=== PATIENT | female | born 1985 | race Caucasian/White ===

== ENCOUNTER 2020-08-25 14:36 | Outpatient (REF) | payer BC, SELFPAY ==
[2020-08-26 09:26] LABS: CT PCR NOT DETECTED (Not Detect.); NG PCR NOT DETECTED (Not Detect.)
== END 2020-08-25 14:37 | disposition home or self-care (01) ==
LOC: HO.LNP 14:36
PROVIDERS: Visit Provider Obstetrics & Gynecology
DX: Z01.419 Encounter for gynecological examination (general) (routine) without abnormal findings (principal); Z11.3 Encounter for screening for infections with a predominantly sexual mode of transmission; R10.2 Pelvic and perineal pain; R31.29 Other microscopic hematuria
CPT/HCPCS: 81002; 81025; 87086; 87147; 87491; 87591

== ENCOUNTER 2020-08-26 09:01 | Outpatient (REF) | payer BC, SELFPAY ==
[2020-08-30 02:31] LABS: HPV 16 RNA NOT DETECTED (NOT DETECTED); HPV mRNA E6/E7 Detected (Not Detected)
== END 2020-08-26 09:02 | disposition home or self-care (01) ==
LOC: HO.LAB 09:01
PROVIDERS: Visit Provider Obstetrics & Gynecology
DX: Z01.419 Encounter for gynecological examination (general) (routine) without abnormal findings (principal); Z11.51 Encounter for screening for human papillomavirus (HPV)
CPT/HCPCS: 87624; 87625; 88141; 88142

== ENCOUNTER 2020-09-04 10:53 | Outpatient (REF) | payer BC, SELFPAY ==
--- NOTE | 2020-09-04 10:59 | US_ITS ---
EXAMINATION: US PELVIS COMPLETE CLINICAL INFORMATION: Pelvic and perineal pain. Right lower quadrant pain. COMPARISON: None. TECHNIQUE: Transabdominal and transvaginal ultrasound the pelvis is performed. FINDINGS: On transabdominal ultrasound, the uterus is retroverted and retroflexed measuring 8.1 cm in length, 3.7 cm in AP and 4.3 cm in transverse dimension. The uterus is unremarkable. The right ovary measures 3.4 x 1.3 x 1.3 cm and volume 2.8 mL. The left ovary measures 2.5 x 1.2 x 1.4 cm and volume 2.9 mL. There is small amount of free fluid in the cul-de-sac. US/US transvaginal IMPRESSION: Unremarkable uterus and ovaries. Small amount of free fluid in the cul-de-sac.
--- NOTE | 2020-09-04 10:59 | US_ITS ---
EXAMINATION: US PELVIS COMPLETE CLINICAL INFORMATION: Pelvic and perineal pain. Right lower quadrant pain. COMPARISON: None. TECHNIQUE: Transabdominal and transvaginal ultrasound the pelvis is performed. FINDINGS: On transabdominal ultrasound, the uterus is retroverted and retroflexed measuring 8.1 cm in length, 3.7 cm in AP and 4.3 cm in transverse dimension. The uterus is unremarkable. The right ovary measures 3.4 x 1.3 x 1.3 cm and volume 2.8 mL. The left ovary measures 2.5 x 1.2 x 1.4 cm and volume 2.9 mL. There is small amount of free fluid in the cul-de-sac. US/US pelvic complete IMPRESSION: Unremarkable uterus and ovaries. Small amount of free fluid in the cul-de-sac.
== END 2020-09-04 10:54 | disposition home or self-care (01) ==
LOC: HO.US 10:53
PROVIDERS: Visit Provider Obstetrics & Gynecology
DX: R10.2 Pelvic and perineal pain (principal)
CPT/HCPCS: 76830; 76856

== ENCOUNTER → 2020-09-08 10:21 | Outpatient (BNVA) | payer BC, SELFPAY | PROVIDERS: Visit Provider Obstetrics & Gynecology | DX: Z76.89 Persons encountering health services in other specified circumstances (principal) ==

== ENCOUNTER 2020-10-20 10:34 | Outpatient (REF) | payer BC, SELFPAY | END 2020-10-20 10:35 | disposition home or self-care (01) | LOC: HO.LAB 10:34 | PROVIDERS: Visit Provider Obstetrics & Gynecology | DX: R31.29 Other microscopic hematuria (principal); R10.2 Pelvic and perineal pain; N39.0 Urinary tract infection, site not specified | CPT/HCPCS: 57454; 81025; 88305 ==

== ENCOUNTER → 2020-10-23 09:48 | Outpatient (BNVA) | payer BC, SELFPAY | PROVIDERS: Visit Provider Obstetrics & Gynecology | DX: Z76.89 Persons encountering health services in other specified circumstances (principal) ==

== ENCOUNTER → 2020-11-12 13:39 | Outpatient (BNVA) | payer BC, SELFPAY | PROVIDERS: Visit Provider Obstetrics & Gynecology | DX: Z76.89 Persons encountering health services in other specified circumstances (principal) ==

== ENCOUNTER 2020-11-14 10:43 | Outpatient (REF) | payer BC, SELFPAY ==
[2020-11-14 10:43] VITALS: BP 159/81; PULSE 92; RESP 18; TEMP 36.3; O2SAT 98; BMI 45.3
--- NOTE | 2020-11-14 10:54 | MHC.SHP ---
Pre-Procedural Eval Section A The patient is an INPATIENT: No Changes since office visit: No Cold of Flu in the past 2 weeks, No New Medical Problems, No Changes in Medication and No Patient answered all questions The History & Physical has been completed within 30 days and I have reviewed it.: Yes Section B Chief Complaint: cin3 Allergies: Allergies Allergy/AdvReac Type Severity Reaction Status Date / Time Sulfa (Sulfonamide Allergy Unknown SWELLING Verified 11/12/20 13:51 Antibiotics) [SULFA(SULFONAMIDE ANTIBIOTICS)] Plan Diagnosis/Plan: Unchanged I have reviewed the history and physical and performed a pertinent physical examination on my patient. No changes have occurred unless specified.
--- NOTE | 2020-11-14 11:09 | PM.OP ---
Brief Operative Note Date of Service: 10/17/20 Pre-op diagnosis: EAMON 3 Post-op diagnosis: same Procedure: LEEP CONE with post CONE ECC Surgeon: Lalo Alva MD Anesthesia: local and other (Paracervical block) Estimated blood loss (mL): 0 Pathology: other (Ant+post Cerv lip, Endocx, Post cone ECC) Condition: stable Disposition: other (Home)
--- NOTE | 2020-11-14 11:09 | W.PM.OPN ---
Operative Note Operative Note Date of Service: 10/17/20 Narrative: Preop diagnosis: EAMON 3 @ 12 o'clock with EAMON I a@ 4+6 o'clock Operation: LEEP Cone with post cone ECC Post op diagnosis: same Anesthesia: paracervical block Complications: none Pathology: Anterior and Posterior cervical lip with endocervix & post cone RCC QBL: minimal Procedure: The patient was put in the dorsal lithotomy position, was prepped and draped in the usual sterile fashion. A sterile speculum was inserted inside the patient vagina. Using Lugol solution the cervix with Dyed with Lugol solution to identifiy the abnormal demarcating line. 10 cc of Marcaine0.5% with epinephrine were given at 2,4 , 8, and 10 o'clock. Using a medium-size loop wire, the anterior cervical lip was excised followed by the posterior cervical lip and endocervix, post cone ECC was done afterwards. Hemostasis was assured using cautery and Monsel solution. All instruments were taken out of the patient's vaginal cavity. the patient tolerated the procedure well and was discharged home with the following instructions: call if temperature is above 100.4, vaginal bleeding, abdominal pain or nausea or vomiting. Follow-up in the office in 2 weeks for postop visit
== END 2020-11-14 10:44 | disposition home or self-care (01) ==
LOC: HO.MS 10:43
PROVIDERS: Visit Provider Obstetrics & Gynecology
PROC: 0UBC7ZZ Excision of Cervix, Via Natural or Artificial Opening (ICD-10-PCS; CPT 57522; principal; 2020-11-14 11:00)
DX: N87.0 Mild cervical dysplasia (principal); E28.2 Polycystic ovarian syndrome; Z88.2 Allergy status to sulfonamides
CPT/HCPCS: 57522; 81025; 88305; 88307; 88341; 88342; 88360

== ENCOUNTER → 2020-11-26 12:52 | Outpatient (BNVA) | payer BC, SELFPAY | PROVIDERS: Visit Provider Obstetrics & Gynecology ==

== ENCOUNTER → 2021-07-10 12:18 | Outpatient (BNVA) | payer BC, SELFPAY | PROVIDERS: PCP Physician Assistant; Visit Provider Physician Assistant ==

== ENCOUNTER → 2021-08-12 08:08 | Outpatient (BNVA) | payer BC, SELFPAY | PROVIDERS: PCP Physician Assistant; Visit Provider Dietitian, Registered | DX: E66.01 Morbid (severe) obesity due to excess calories (principal); E28.2 Polycystic ovarian syndrome; Z68.42 Body mass index [BMI] 45.0-49.9, adult | CPT/HCPCS: 97802 ==

== ENCOUNTER 2021-08-22 09:05 | Outpatient (REF) | payer BC, SELFPAY ==
[2021-08-22 09:19] LABS: MANUAL DIFF FLAG NO
[2021-08-22 09:46] LABS: Basophils Percent Auto 0.4 % (0-2); Eosinophils Absolute Auto 0.1 X10*3/uL (0.0-0.4); Eosinophils Percent Auto 1.4 % (0-4); Hemoglobin 14.7 g/dl (12.0-16.0); Imm Gran Abs Auto 0.02 X10*3/uL (0.00-0.03); Imm Gran Pct Auto 0.2 % (0.0-0.4); Lymphocytes Absolute Auto 1.9 X10*3/uL (1.2-4.9); Lymphocytes Percent Auto 22.8 % (20-40); Mean Corpuscular HGB Conc 33.4 g/dl (31.0-35.0); Mean Corpuscular Hemoglobin 29.7 pg (27.0-33.0); Mean Corpuscular Volume 88.9 fL (80-98); Mean Platelet Volume 10.6 fL (9.4-12.3); Monocytes Absolute Auto 0.5 X10*3/uL (0.1-1.2); Monocytes Percent Auto 6.2 % (2-11); Neutrophils Absolute Auto 5.8 X10*3/uL (2.0-8.3); Platelet Count 226 X10*3/uL (160-400); Red Blood Count 4.95 X10*6/uL (4.20-5.50); Red Cell Distribution Width 12.6 % (11.0-16.0); White Blood Count 8.4 X10*3/uL (4.8-10.8)
[2021-08-22 10:03] LABS: Alanine Aminotransferase 53 U/L (0-31); Albumin Level 4.1 g/dL (3.5-5.0); Alkaline Phosphatase 92 U/L (39-117); Anion Gap 11 (12-20); Aspartate Amino Transferase 25 U/L (5-31); Bilirubin Total 0.5 mg/dL (0.0-1.0); Blood Urea Nitrogen 10 mg/dL (9-16); C Reactive Protein 1.27 mg/dL (< or = 0.50); Calcium 9.4 mg/dL (8.4-10.2); Carbon Dioxide 29 mmol/L (22-29); Chloride 105 mmol/L (96-108); Cholesterol 195 mg/dL; Estimated Glomerular Filt Rate > 60; Glucose Random 102 mg/dL (60-115); HDL Cholesterol 35 mg/dL; Iron 41 mcg/dL (30-160); LDL Cholesterol Calculated 139 mg/dl; Percent Iron Saturation 9 % (15-50); Potassium 4.6 mmol/L (3.3-5.1); Sodium 140 mmol/L (135-145); Total Iron Binding Capacity 447 mcg/dL (228-428); Total Protein 6.8 g/dL (6.5-8.0); Triglycerides 105 mg/dL; Unsaturated Iron Binding 406 ug/dL
[2021-08-22 10:09] LABS: Estimated Average Glucose 91 mg/dL; Hemoglobin A1c % 4.8 %
[2021-08-22 10:24] LABS: Ferritin 32 ng/mL (10-122); TSH reflex Free T4 0.53 uIU/mL (0.32-4.0); Vitamin D 25-OH Total 45.9 ng/mL (>30)
[2021-08-24 04:27] LABS: Vitamin B12 631 pg/mL (200-900)
[2021-08-24 13:41] LABS: Calcium (PTHI) 9.4 mg/dL (8.6-10.2); PTHI 37 pg/mL (14-64)
[2021-08-26 02:07] LABS: Zinc 72 mcg/dL (60-130)
[2021-08-27 00:32] LABS: Vitamin A 52 mcg/dL (38-98)
[2021-08-28 11:21] LABS: Vitamin B1 10 nmol/L (8-30)
== END 2021-08-22 09:06 | disposition home or self-care (01) ==
LOC: HO.LAB 09:05
PROVIDERS: PCP Physician Assistant; Visit Provider Physician Assistant
DX: E28.2 Polycystic ovarian syndrome (principal); E66.01 Morbid (severe) obesity due to excess calories; F41.9 Anxiety disorder, unspecified
CPT/HCPCS: 36415; 80053; 80061; 82306; 82607; 82728; 82746; 83036; 83540; 83970; 84425; 84443; 84590; 84630; 85025; 86140

== ENCOUNTER → 2021-09-09 08:17 | Outpatient (BNVA) | payer BC, SELFPAY | PROVIDERS: PCP Physician Assistant; Referring Provider Surgery; Visit Provider Dietitian, Registered | DX: E66.9 Obesity, unspecified (principal) | CPT/HCPCS: 97803 ==

== ENCOUNTER → 2021-09-11 08:03 | Outpatient (BNVA) | payer BC, SELFPAY | PROVIDERS: PCP Physician Assistant; Visit Provider Surgery ==

== ENCOUNTER 2021-09-14 08:00 | Outpatient (REF) | payer BC, SELFPAY ==
--- NOTE | ~2021-09-14 | XR_ITS ---
EXAMINATION: XR CHEST CLINICAL INFORMATION: Shortness of breath. Anxiety. COMPARISON: None TECHNIQUE: 2 views of the chest were obtained. FINDINGS: Cardiac silhouette is normal in size. The lungs are well aerated. There is no lobar consolidation. No pleural effusion or pneumothorax. No acute osseous abnormality. XR/XR chest 2V IMPRESSION: No acute pulmonary pathology.
--- NOTE | ~2021-09-14 | US_ITS ---
EXAMINATION: US COMPLETE ABDOMEN WITH LIVER ELASTOGRAPHY CLINICAL INFORMATION: Elevated liver function tests COMPARISON: None. TECHNIQUE: Real-time imaging of the abdominal viscera. Noninvasive ultrasound liver fibrosis assessment is performed using Mark ElastPQ point quantification shear wave elastography (pSWE) with a C5-2 MHz transducer. Multiple elastography samples are obtained. FINDINGS: PANCREAS: Not well visualized due to bowel gas ABDOMINAL AORTA: The proximal, middle, and distal aortic segments are normal in caliber. INFERIOR VENA CAVA: Visualized portions are normal. LIVER: There is a 1.4 x 0.7 x 1.3 cm hyperechoic lesion in the peripheral right lobe of the liver. The liver demonstrates normal size, contour and echogenicity. No intrahepatic biliary duct dilatation. The right lobe measures 15 cm in length. The left lobe measures 7 cm in length. Portal flow is normal/hepatopedal Shear wave liver elastography median stiffness is 1.4 m/s (reference: normal median stiffness is 1.3 m/s or less). IQR/median stiffness to assess sampling precision is 0.24 (reference: good quality data set is IQR/median stiffness of 0.15 or less). GALLBLADDER: The gallbladder is normal in size. There is a gallstone in the gallbladder. The gallbladder wall is normal in thickness. COMMON BILE DUCT: Normal in caliber measuring 0.2 cm in diameter. RIGHT KIDNEY: Normal. No hydronephrosis. No renal calculi or focal parenchymal lesions. The kidney measures 11.5 cm in maximum dimension. LEFT KIDNEY: Normal. No hydronephrosis. No renal calculi or focal parenchymal lesions. The kidney measures 10.4 cm in maximum dimension. SPLEEN: Normal. The spleen measures 11.4 cm in maximum dimension. FREE FLUID: None. US/US abdomen comp w elastography IMPRESSION: 1. Impression: 1.4 x 0.9 x 1.3 cm peripheral hyperechoic lesion in the right lobe the liver. This may represent a hemangioma. Ultrasound follow-up could be considered. Alternatively, if patient is high risk i.e. known liver disease or history of malignancy, this could be further evaluated with liver MRI with contrast. Gallstone. Limited visualization of the pancreas. 2. Liver elastography: Limited due to sampling error. In the absence of other known clinical signs, rules out compensated advanced chronic liver disease. REFERENCE: Society of Radiologists in Ultrasound Liver Stiffness Thresholds (2020): LIVER STIFFNESS THRESHOLDS: *Liver Stiffness equal or less than 1.3 m/s: High probability of being normal. *Liver Stiffness less than 1.7 m/s: In the absence of other known clinical signs, rules out compensated advanced chronic liver disease. *Liver Stiffness 1.7-2.1 m/s: Suggestive of compensated advanced chronic liver disease but need further test for confirmation. *Liver Stiffness over 2.1 m/s: Rules in compensated advanced chronic liver disease. *Liver Stiffness over 2.4 m/s: Suggestive of clinically significant portal hypertension. QUALITY OF DATA SET: *IQR/Median value equal or less than 0.15 implies a quality data set. *IQR/Median value over 0.15 implies a poor quality data set. SIGNIFICANT CHANGE FROM PRIOR EXAM: Significant change if liver stiffness measurement is 10% or greater from prior exam. OTHER CONSIDERATIONS: The stage of liver fibrosis may be overestimated in the setting of acute hepatitis, liver inflammation, elevated liver function tests, hepatic vascular congestion, obstructive cholestasis, non-fasting state, and infiltrative diseases such as amyloidosis and lymphoma. In some patients with NAFLD, the liver stiffness thresholds for compensated advanced chronic liver disease may be lower. In causes other than viral hepatitis and NAFLD, liver stiffness thresholds are not well established.
[2021-09-17 15:24] LABS: H Pylori Breath Test Negative (Negative)
== END 2021-09-14 08:01 | disposition home or self-care (01) ==
LOC: HO.US 08:00
PROVIDERS: Physician Assistant; Visit Provider Surgery
DX: F41.9 Anxiety disorder, unspecified (principal); E66.01 Morbid (severe) obesity due to excess calories; E28.2 Polycystic ovarian syndrome; Z11.0 Encounter for screening for intestinal infectious diseases
CPT/HCPCS: 36415; 71046; 76705; 76981; 83013

== ENCOUNTER 2021-09-21 10:59 | Outpatient (REF) | payer BC, SELFPAY ==
[2021-09-21 11:29] LABS: MANUAL DIFF FLAG NO
[2021-09-21 12:15] LABS: Basophils Percent Auto 0.8 % (0-2); Eosinophils Absolute Auto 0.1 X10*3/uL (0.0-0.4); Eosinophils Percent Auto 2.3 % (0-4); Hematocrit 49.5 % (37.0-47.0); Hemoglobin 16.2 g/dl (12.0-16.0); Imm Gran Abs Auto 0.01 X10*3/uL (0.00-0.03); Imm Gran Pct Auto 0.3 % (0.0-0.4); Lymphocytes Absolute Auto 1.1 X10*3/uL (1.2-4.9); Lymphocytes Percent Auto 29.1 % (20-40); Mean Corpuscular HGB Conc 32.7 g/dl (31.0-35.0); Mean Corpuscular Hemoglobin 29.5 pg (27.0-33.0); Mean Corpuscular Volume 90.2 fL (80.0-98.0); Mean Platelet Volume 11.7 fL (9.4-12.3); Monocytes Absolute Auto 0.6 X10*3/uL (0.1-1.2); Monocytes Percent Auto 14.3 % (2-11); Neutrophils Absolute Auto 2.1 x10*3/uL (2.0-8.3); Neutrophils Percent Auto 53.2 % (45-73); Platelet Count 183 X10*3/uL (160-400); Red Blood Count 5.49 X10*6/uL (4.20-5.50); Red Cell Distribution Width 12.5 % (11.0-16.0); White Blood Count 3.9 X10*3/uL (4.8-10.8)
[2021-09-21 12:26] LABS: INTERNATIONAL NORM RATIO 1.1 (0.9-1.1); Prothrombin Time 12.4 SEC (9.9-13.0)
[2021-09-21 12:28] LABS: Partial Thromboplastin Time 37.2 SEC (24.1-38.0)
[2021-09-21 12:50] LABS: Alanine Aminotransferase 70 U/L (0-31); Albumin Level 4.3 g/dL (3.5-5.0); Alkaline Phosphatase 92 U/L (39-117); Anion Gap 16 (12-20); Aspartate Amino Transferase 28 U/L (5-31); Bilirubin Total 0.6 mg/dL (0.0-1.0); Blood Urea Nitrogen 11 mg/dL (9-16); Calcium 9.2 mg/dL (8.4-10.2); Carbon Dioxide 23 mmol/L (22-29); Chloride 105 mmol/L (96-108); Estimated Glomerular Filt Rate > 60; Glucose Random 77 mg/dL (60-115); Potassium 3.9 mmol/L (3.3-5.1); Sodium 140 mmol/L (135-145); Total Protein 7.3 g/dL (6.5-8.0)
== END 2021-09-21 11:00 | disposition home or self-care (01) ==
LOC: HO.XRAY 10:59
PROVIDERS: PCP Physician Assistant; Visit Provider Surgery
DX: K80.20 Calculus of gallbladder without cholecystitis without obstruction (principal)
CPT/HCPCS: 36415; 80053; 85025; 85610; 85730

== ENCOUNTER 2021-09-22 08:16 | Outpatient (REF) | payer BC, SELFPAY ==
--- NOTE | ~2021-09-22 | FL_ITS ---
EXAMINATION: XR GI SERIES CLINICAL INFORMATION: Obesity. Preop. COMPARISON: None TECHNIQUE: Upper GI was performed using thin and thick barium and effervescent granules FINDINGS: Esophageal motility is normal. There is a small sliding-type hiatal hernia. The esophagus is otherwise normal. No gastroesophageal reflux. Stomach and duodenum are normal-appearing. No fold thickening, mass, ulcer or stricture is seen. FLUOROSCOPY TIME: 0.4 minutes DOSE AREA PRODUCT: 4 ackerman per centimeter squared. 16 saved fluoroscopic images. FL/FL upper GI series IMPRESSION: Small sliding-type hiatal hernia otherwise unremarkable exam.
== END 2021-09-22 08:17 | disposition home or self-care (01) ==
LOC: HO.XRAY 08:16
PROVIDERS: PCP Physician Assistant; Visit Provider Surgery
DX: E28.2 Polycystic ovarian syndrome (principal); E66.01 Morbid (severe) obesity due to excess calories; F41.9 Anxiety disorder, unspecified
CPT/HCPCS: 74240

== ENCOUNTER 2021-09-24 10:22 | Day surgery (SDC) | payer BC, SELFPAY ==
--- NOTE | 2021-09-23 10:29 | HO.ANESPROP2 ---
Documented by User: Mamie Craig NP 09/23/21 10:31 HPI - Anesthesia Eval Consult details Narrative: 35yo F for Cholecystectomy Laparoscopic PMFSH Active Problems Active Problems: All Active Problems (Updated 09/17/21 @ 23:10 by Kenneth Armstrong MD) Nausea (Acute) Cholelithiasis (Acute) Back pain (Acute) Adjustment disorder, unspecified (Acute) Anxiety (Acute) PCOS (polycystic ovarian syndrome) (Acute) Morbid obesity (Acute) EAMON III (cervical intraepithelial neoplasia grade III) with severe dysplasia (Acute) UTI (urinary tract infection) (Acute) Microscopic hematuria (Acute) Female pelvic pain (Acute) Well woman exam (Acute) Past Medical History Medical History Back pain PCOS (polycystic ovarian syndrome) anxiety Family History Family History Mother No problems noted. Father No problems noted. Brother No problems noted. Surgical History Surgical History H/O LEEP Hx of tonsillectomy Hx of wisdom tooth extraction Social History Social History Alcohol intake: current Alcohol intake frequency: holidays/special occasions only Patient Tobacco Use Status: Never used Tobacco Use of substances other than those prescribed or required for medical reasons: No Advance Directives: No Advance Directives Information Provided: Yes Recently lost weight without trying: No Patient : No Sexual orientation: Straight/Heterosexual Gender identity: Female Meds Allergies Allergy/AdvReac Type Severity Reaction Status Date / Time Sulfa (Sulfonamide Allergy Unknown SWELLING Verified 08/12/21 14:51 Antibiotics) [SULFA(SULFONAMIDE ANTIBIOTICS)] Home Medications Medication Instructions Recorded Confirmed Last Taken Type escitalopram oxalate 10 mg tablet 10 mg PO DAILY 08/12/21 08/12/21 Unknown History Exam Exam Date and Time: September 23, 2021 1029 Pertinent Lab Results Pertinent Lab Results: Laboratory Tests 09/21/21 11:25 Blood Type B Positive Antibody Screen NEGATIVE Laboratory Tests 09/21/21 09/21/21 11:27 11:27 WBC 3.9 L Hgb 16.2 H Hct 49.5 H Plt Count 183 Sodium 140 Potassium 3.9 Chloride 105 Carbon Dioxide 23 BUN 11 Creatinine 0.87 Assessment and Plan Assessment Anesthesia Assessment: Chart Reviewed Documented by User: Connie Winn MD 09/24/21 11:56 PMFSH Active Problems Active Problems: All Active Problems (Updated 09/17/21 @ 23:10 by Kenneth Armstrong MD) Nausea (Acute) Cholelithiasis (Acute) Back pain (Acute) Adjustment disorder, unspecified (Acute) Anxiety (Acute) PCOS (polycystic ovarian syndrome) (Acute) Morbid obesity (Acute) EAMON III (cervical intraepithelial neoplasia grade III) with severe dysplasia (Acute) UTI (urinary tract infection) (Acute) Microscopic hematuria (Acute) Female pelvic pain (Acute) Well woman exam (Acute) No SHANE Past Medical History Medical History Back pain PCOS (polycystic ovarian syndrome) anxiety Family History Family History Mother No problems noted. Father No problems noted. Brother No problems noted. Family history of problems with anesthesia: No Surgical History Surgical History H/O LEEP Hx of tonsillectomy Hx of wisdom tooth extraction History of Problems with Anesthesia: No Social History Social History Alcohol intake: current Alcohol intake frequency: holidays/special occasions only Patient Tobacco Use Status: Never used Tobacco Use of substances other than those prescribed or required for medical reasons: No Advance Directives: No Advance Directives Information Provided: Yes Recently lost weight without trying: No Patient : No Sexual orientation: Straight/Heterosexual Gender identity: Female Meds Allergies Allergy/AdvReac Type Severity Reaction Status Date / Time Sulfa (Sulfonamide Allergy Unknown SWELLING Verified 08/12/21 14:51 Antibiotics) [SULFA(SULFONAMIDE ANTIBIOTICS)] Home Medications Medication Instructions Recorded Confirmed Last Taken Type escitalopram oxalate 10 mg tablet 10 mg PO DAILY 08/12/21 08/12/21 Unknown History Exam Height,Weight and Vital Signs: Height 5 ft 1 in Weight 103.419 kg Vital Signs Temp Resp BP Pulse Ox 09/24/21 10:39 98.3 F 15 118/74 97 Pertinent Lab Results Pertinent Lab Results: Laboratory Tests 09/21/21 11:25 Blood Type B Positive Antibody Screen NEGATIVE Laboratory Tests 09/21/21 09/21/21 11:27 11:27 WBC 3.9 L Hgb 16.2 H Hct 49.5 H Plt Count 183 Sodium 140 Potassium 3.9 Chloride 105 Carbon Dioxide 23 BUN 11 Creatinine 0.87 Laboratory Results - last 24 hr 09/24/21 09/24/21 10:22 10:30 Urine Test NEGATIVE COVID-19 (RADHA) Negative COVID-19 Clin Com See Note Airway Mallampati Class: II TM Dist: >3cm Neck ROM: Full Loose/Missing/Broken Teeth: No Heart: RRR Lungs: CTAB Assessment and Plan Assessment Anesthesia Assessment: Anesthesia Plan Discussed Final Anesthetic Review Family History of Problems with Anesthesia: No History of Problems with Anesthesia: No NPO: Yes ASA Class: III Final Preanesthetic Review: No Changes in Pt Med Stat, Meds/Allgs Chart Reviewed, Consent Obtained/Reviewed and Anes Risks/Benef Reviewed Patient Risk: Intermediate Procedure Risk: Intermediate Assessment/Block/Sedation in SS: Assess/Block/Sedation- Anesthetic Plan Anesthetic Plan: MAC: Disposition: Standard PACU
--- NOTE | 2021-09-23 17:27 | MHC.SHP ---
Pre-Procedural Eval Section A Date of Service: 09/23/21 The patient is an INPATIENT: No The History & Physical has been completed within 30 days and I have reviewed it.: Yes Section B Chief Complaint: Cholelithiasis Relevant Family History (Specify if Yes): No Relevant Social History: None Present Medications: None Medical History: No relevant PMH History of Previous Operations: No relevant previous surgery Allergies: Allergies Allergy/AdvReac Type Severity Reaction Status Date / Time Sulfa (Sulfonamide Allergy Unknown SWELLING Verified 08/12/21 14:51 Antibiotics) [SULFA(SULFONAMIDE ANTIBIOTICS)] Review of Systems Sugical H&P ROS: Negative: Constitution, Cardiovascular, Respiratory, Neurological, Psychiatric, Hem-Onc, Allergic/Immunologic, Gastrointestinal, Genitourinary, Musculoskeletal, Integumentary, Endocrine and Eyes/Ears/Nose/Throat Exam Surgical H&P Exam: Normal: HEENT, Normal: Heart, Normal: Lungs, Normal: Extremities, Normal: Abdomen, Normal: Skin and Normal: Neurological Plan Diagnosis/Plan: Unchanged I have reviewed the history and physical and performed a pertinent physical examination on my patient. No changes have occurred unless specified.
[2021-09-24] VITALS (8 sets, daily range): BP systolic 116–126; BP diastolic 62–78; PULSE 87–100; RESP 14–19; TEMP 36.2–37.5; O2SAT 95–100; BMI 43.0
[2021-09-24 10:52] LABS: UPreg QC Valid YES; Urine Pregnancy NEGATIVE (NEGATIVE)
[2021-09-24] MEDS: Lactated Ringers 1,000 ML 100 ML IVCONT (10:56)
[2021-09-24 10:57] LABS: COVID-19 Test Negative (Negative)
--- NOTE | 2021-09-24 13:18 | P.BOP_ITS ---
Brief Operative Note Date of Service: 09/24/21 Pre-op diagnosis: Choleithiasis Post-op diagnosis: same Procedure: PROCEDURE DATE: ?09/23/2021 PREOPERATIVE DIAGNOSIS: Symptomatic cholelithiasis, morbid obesity with a body mass index of 47.8 kg/sq. meters and comorbidities including PCOS, anxiety, back pain POSTOPERATIVE DIAGNOSIS: ?Same as above. Cholecystitis PROCEDURE: Laparoscopic cholecystectomy Surgeon: ? Bebeto Armstrong M.D., Ph.D. Director Of Philanthropy: ?Carla Barney PA-C ? Anesthesia: General endotracheal anesthesia Estimated blood loss: ?Minimal FINDINGS AND PROCEDURE: ? OPERATIVE INDICATIONS: ?The patient is a 35 year old female known to me who was initially seen in my office for evaluation for refractory morbid obesity.? During the preoperative workup, the patient was found to have cholelithiasis which appears to be symptomatic.? We recommended cholecystectomy before the bariatric surgery due to the higher risks of acute cholecystitis after the bariatric surgery as a result of the rapid weight loss. Risks and complications of the surgery were discussed with the patient in advance, particularly the postoperative bleeding, infection, DVT or PE, bile leak, major bile duct injury that may require additional surgical intervention, cardiac, pulmonary or renal complications among others.? The patient understood the risks and was in agreement with the plan. PROCEDURE: After informed consent was obtained by the patient, the patient was transferred to the Operating Room and was placed in the supine position.? The patient was given preoperative antibiotics and after successful induction of general anesthesia, pneumatic compression devices were placed. ? The patient was then prepped and draped in the usual sterile manner and abdominal access was ?established with Arie technique.? The abdomen was insufflated with C02 to a pressure of 15 mmHg. A 5 mm Versi-step port was placed, slightly to the right and superior from the umbilicus. The 5 mm camera was introduced.? I inspected the area where the port had been placed and there was no injury.? The patient was then placed initially in a steep reverse Trendelenburg position and three additional ports were placed, specifically a 12 mm Versi-step port just to the right of the midline below the xiphoid process and two 5 mm Versi-step ports at the right upper quadrant and right flank. ? At that point the patient was ?placed in a steep reverse Trendelenburg position tilted to the left side. The gallbladder was retracted cephalad and laterally. The peritoneal attachments of the gallbladder ?at the triangle of Calot posteriorly and anteriorly were taken down.? The cystic duct and artery were both seen. They were completely dissected free, skeletonized all the way to the infundibulum of the gallbladder. In a similar fashion I also cleaned the liver bed just behind the cystic artery all the way to the liver bed half way to the top of the gallbladder, to make sure there was no additional structures in this area.? Once I confirmed that both structures were entering into the gallbladder ?and there were no other structures in the area, they were both clipped with two clips proximally, one distally and were cut in-between. Then using the electrocautery, I slowly took down the gallbladder ?from the liver bed. Small areas of bleeding from the liver parenchyma were controlled with the cautery.? After the gallbladder was completely detached from the liver bed, it was placed in an EndoCatch bag and was removed without difficulty from the xiphoid port. I then inspected the clips at the cystic duct and artery and were both in place.? There was no active bleeding from the liver bed. We thoroughly irrigated the right upper quadrant and I removed all fluid until clear. At that point the patient was placed in supine position, we deflated the abdomen and we removed all ports under direct vision and no bleeding was noted from any of the port sites. The fascia of the 12 mm port was closed using a #1 Polysorb suture. 60cc 0.25% Marcaine and Hydrocortisone were used to infiltrate the fascial closure as well as all skin incisions. The wounds were irrigated with saline mixed with antibiotic solution and then the skin was closed with 4-0 Monocryl subcuticular sutures antibiotic- coated. Steri-strips and OpSites were used to cover all incisions. The patient extubated and was transferred in stable condition to the Recovery Room for further care. I was present and performed all steps of the procedure. Ms. Barney was the medical administrative assistant.? There were no residents to assist with this case. Bebeto Armstrong M.D., Ph.D., F.A.C.S. Surgeon: Kenneth Armstrong MD Anesthesia: GETA, local and other (TAP block) Was an Director Of Philanthropy used for this Procedure?: No Director Of Philanthropy: Carla Barney Estimated blood loss (mL): 10 IV fluids (mL): 2,000 Urine output (mL): 0 (No Whitaker to record) Pathology: other (Gallbladder) Condition: stable Disposition: PACU
== END 2021-09-24 15:45 | disposition home or self-care (01) ==
PROVIDERS: Nurse Practitioner; PCP Physician Assistant; Visit Provider Surgery
PROC: 0FT44ZZ Resection of Gallbladder, Percutaneous Endoscopic Approach (ICD-10-PCS; CPT 47562; principal; 2021-09-24 12:10)
DX: K80.10 Calculus of gallbladder with chronic cholecystitis without obstruction (principal); R59.9 Enlarged lymph nodes, unspecified; E66.01 Morbid (severe) obesity due to excess calories; Z68.41 Body mass index [BMI] 40.0-44.9, adult; M54.9 Dorsalgia, unspecified; E28.2 Polycystic ovarian syndrome; Z88.2 Allergy status to sulfonamides; Z20.822 Contact with and (suspected) exposure to COVID-19
CPT/HCPCS: 47562; 36415; 81025; 86850; 86900; 86901; 87635; 88304; J0131; J0690; J1100; J2250; J2370; J2405; J3010

== ENCOUNTER → 2021-10-07 10:47 | Outpatient (BNVA) | payer BC, SELFPAY | PROVIDERS: PCP Physician Assistant; Visit Provider Surgery ==

== ENCOUNTER 2021-10-16 12:45 | Outpatient (REF) | payer BC, SELFPAY ==
[2021-10-16 12:56] LABS: MANUAL DIFF FLAG NO
[2021-10-16 14:04] LABS: Basophils Percent Auto 0.4 % (0-2); Eosinophils Absolute Auto 0.1 X10*3/uL (0.0-0.4); Eosinophils Percent Auto 1.5 % (0-4); Hematocrit 44.1 % (37.0-47.0); Hemoglobin 14.5 g/dl (12.0-16.0); INTERNATIONAL NORM RATIO 1.1 (0.9-1.1); Imm Gran Abs Auto 0.03 X10*3/uL (0.00-0.03); Imm Gran Pct Auto 0.3 % (0.0-0.4); Lymphocytes Absolute Auto 2.4 X10*3/uL (1.2-4.9); Lymphocytes Percent Auto 24.9 % (20-40); Mean Corpuscular HGB Conc 32.9 g/dl (31.0-35.0); Mean Corpuscular Hemoglobin 29.2 pg (27.0-33.0); Mean Corpuscular Volume 88.9 fL (80.0-98.0); Mean Platelet Volume 11.5 fL (9.4-12.3); Monocytes Absolute Auto 0.7 X10*3/uL (0.1-1.2); Monocytes Percent Auto 7.7 % (2-11); Neutrophils Absolute Auto 6.2 x10*3/uL (2.0-8.3); Neutrophils Percent Auto 65.2 % (45-73); Platelet Count 226 X10*3/uL (160-400); Prothrombin Time 12.7 SEC (9.9-13.0); Red Blood Count 4.96 X10*6/uL (4.20-5.50); Red Cell Distribution Width 12.5 % (11.0-16.0); White Blood Count 9.5 X10*3/uL (4.8-10.8)
[2021-10-16 14:06] LABS: Partial Thromboplastin Time 41.5 SEC (24.1-38.0)
[2021-10-16 14:14] LABS: Estimated Average Glucose 97 mg/dL
[2021-10-16 14:30] LABS: Alanine Aminotransferase 92 U/L (0-31); Albumin Level 4.3 g/dL (3.5-5.0); Alkaline Phosphatase 110 U/L (39-117); Anion Gap 16 (12-20); Aspartate Amino Transferase 48 U/L (5-31); Bilirubin Total 0.7 mg/dL (0.0-1.0); Blood Urea Nitrogen 11 mg/dL (9-16); C Reactive Protein 0.98 mg/dL (< or = 0.50); Calcium 9.7 mg/dL (8.4-10.2); Carbon Dioxide 25 mmol/L (22-29); Chloride 102 mmol/L (96-108); Cholesterol 177 mg/dL; Estimated Glomerular Filt Rate > 60; Glucose Random 67 mg/dL (60-115); Potassium 4.5 mmol/L (3.3-5.1); Sodium 138 mmol/L (135-145); Total Protein 7.2 g/dL (6.5-8.0); Triglycerides 94 mg/dL
[2021-10-16 14:37] LABS: Insulin 3 uU/mL (2-29); TSH reflex Free T4 0.98 uIU/mL (0.32-4.0)
[2021-10-16 14:41] LABS: HDL Cholesterol 34 mg/dL; LDL Cholesterol Calculated 125 mg/dl
== END 2021-10-16 12:46 | disposition home or self-care (01) ==
LOC: HO.LAB 12:45
PROVIDERS: PCP Physician Assistant; Visit Provider Surgery
DX: E66.01 Morbid (severe) obesity due to excess calories (principal)
CPT/HCPCS: 36415; 80053; 80061; 83036; 83525; 84443; 85025; 85610; 85730; 86140; 86850; 86900; 86901

== ENCOUNTER 2021-10-20 06:15 | Inpatient (IN) | payer BC, SELFPAY ==
--- NOTE | 2021-10-16 | ECG_ITS ---
Test Reason : preop Blood Pressure : / mmHG Vent. Rate : 067 BPM Atrial Rate : 067 BPM P-R Int : 118 ms QRS Dur : 078 ms QT Int : 402 ms P-R-T Axes : 066 037 035 degrees QTc Int : 424 ms Normal sinus rhythm Normal ECG No previous ECGs available Referred By: Carla Barney Electronically Signed By:Daniel Fuentes
[2021-10-16 09:52] VITALS: BMI 42.3
--- NOTE | 2021-10-17 20:25 | MHC.SHP ---
Pre-Procedural Eval Section A Date of Service: 10/17/21 The patient is an INPATIENT: Yes The History & Physical has been completed within 30 days and I have reviewed it.: No Section B Chief Complaint: Morbid Severe Obesity Relevant Family History (Specify if Yes): Yes Relevant Social History: None Present Medications: None Medical History: No relevant PMH History of Previous Operations: No relevant previous surgery Allergies: Allergies Allergy/AdvReac Type Severity Reaction Status Date / Time Sulfa (Sulfonamide Allergy Unknown SWELLING Verified 10/16/21 09:49 Antibiotics) [SULFA(SULFONAMIDE ANTIBIOTICS)] Review of Systems Sugical H&P ROS: Negative: Constitution, Cardiovascular, Respiratory, Neurological, Psychiatric, Hem-Onc, Allergic/Immunologic, Gastrointestinal, Genitourinary, Musculoskeletal, Integumentary, Endocrine and Eyes/Ears/Nose/Throat Exam Surgical H&P Exam: Normal: HEENT, Normal: Heart, Normal: Lungs, Normal: Extremities, Normal: Abdomen, Normal: Skin and Normal: Neurological Plan Diagnosis/Plan: Unchanged I have reviewed the history and physical and performed a pertinent physical examination on my patient. No changes have occurred unless specified.
--- NOTE | 2021-10-19 10:04 | P.CONAN_ITS ---
Documented by User: Mamie Craig NP 10/19/21 10:06 HPI - Anesthesia Eval Consult details Narrative: 35yo F for Gastrectomy Sleeve, EGD, Poss Diaphragmatic Hernia, Poss Ventral Hernia, Poss open s/p lap mimi 09/2021 with GA-ETT 7 PMFSH Active Problems Active Problems: All Active Problems (Updated 09/17/21 @ 23:10 by Kenneth Armstrong MD) Nausea (Acute) Cholelithiasis (Acute) Back pain (Acute) Adjustment disorder, unspecified (Acute) Anxiety (Acute) PCOS (polycystic ovarian syndrome) (Acute) Morbid obesity (Acute) EAMON III (cervical intraepithelial neoplasia grade III) with severe dysplasia (Acute) UTI (urinary tract infection) (Acute) Microscopic hematuria (Acute) Female pelvic pain (Acute) Well woman exam (Acute) Past Medical History Medical History Back pain PCOS (polycystic ovarian syndrome) anxiety Family History Family History Mother No problems noted. Father No problems noted. Brother No problems noted. Family history of problems with anesthesia: No Surgical History Surgical History H/O LEEP Hx of cholecystectomy Hx of tonsillectomy Hx of wisdom tooth extraction History of Problems with Anesthesia: No Social History Social History Are you a primary hospice spiritual care coordinator to a significant other at home: No Do you presently have visiting nurse or other home services: No Alcohol intake: current Alcohol intake frequency: does not drink Patient Tobacco Use Status: Never used Tobacco Use of substances other than those prescribed or required for medical reasons: Yes Substance Use Frequency: Occasionally Have you been hit, kicked, punched, or otherwise hurt by someone within the past year? If so, by whom?: No Are you DNR?: No Advance Directives: No Advance Directives Information Provided: Yes (Mailed w/ preop Instructions) Advance Directives on File: No Recently lost weight without trying: No How much weight loss: 14-23 pounds Eating poorly because of decreased appetite: No Nutrition screen score: 2 Nutrition Risks: No Nutritional Risk Patient : No FDLMP: do any day now : No Sexual orientation: Straight/Heterosexual Gender identity: Female Meds Allergies Allergy/AdvReac Type Severity Reaction Status Date / Time Sulfa (Sulfonamide Allergy Unknown SWELLING Verified 10/20/21 06:39 Antibiotics) [SULFA(SULFONAMIDE ANTIBIOTICS)] Home Medications Medication Instructions Recorded Confirmed Last Taken Type escitalopram oxalate 10 mg tablet 10 mg PO DAILY 08/12/21 10/16/21 Unknown History Exam Exam Date and Time: October 19, 2021 1004 Height,Weight and Vital Signs: Height 5 ft 1 in Weight 101.605 kg Pertinent Lab Results Pertinent Lab Results: Laboratory Tests 10/16/21 10/16/21 12:55 12:55 WBC 9.5 Hgb 14.5 Hct 44.1 Plt Count 226 Sodium 138 Potassium 4.5 Chloride 102 Carbon Dioxide 25 BUN 11 Creatinine 0.79 Narrative Narrative: EKG 10/27 Vent. Rate : 067 BPM ? ? Atrial Rate : 067 BPM ?? P-R Int : 118 ms? QRS Dur : 078 ms ? ? QT Int : 402 ms ? ? ? P-R-T Axes : 066 037 035 degrees ?? QTc Int : 424 ms ? Normal sinus rhythm Normal ECG No previous ECGs available Assessment and Plan Assessment Anesthesia Assessment: Chart Reviewed Final Anesthetic Review Family History of Problems with Anesthesia: No History of Problems with Anesthesia: No Documented by User: Maikel Willson 10/20/21 08:51 PMFSH Past Medical History Medical History Back pain PCOS (polycystic ovarian syndrome) anxiety Family History Family History Mother No problems noted. Father No problems noted. Brother No problems noted. Surgical History Surgical History H/O LEEP Hx of cholecystectomy Hx of tonsillectomy Hx of wisdom tooth extraction Social History Social History Are you a primary hospice spiritual care coordinator to a significant other at home: No Do you presently have visiting nurse or other home services: No Alcohol intake: current Alcohol intake frequency: does not drink Patient Tobacco Use Status: Never used Tobacco Use of substances other than those prescribed or required for medical reasons: Yes Substance Use Frequency: Occasionally Have you been hit, kicked, punched, or otherwise hurt by someone within the past year? If so, by whom?: No Are you DNR?: No Advance Directives: No Advance Directives Information Provided: Yes (Mailed w/ preop Instructions) Advance Directives on File: No Recently lost weight without trying: No How much weight loss: 14-23 pounds Eating poorly because of decreased appetite: No Nutrition screen score: 2 Nutrition Risks: No Nutritional Risk Patient : No FDLMP: do any day now : No Sexual orientation: Straight/Heterosexual Gender identity: Female Meds Allergies Allergy/AdvReac Type Severity Reaction Status Date / Time Sulfa (Sulfonamide Allergy Unknown SWELLING Verified 10/20/21 06:39 Antibiotics) [SULFA(SULFONAMIDE ANTIBIOTICS)] Home Medications Medication Instructions Recorded Confirmed Last Taken Type escitalopram oxalate 10 mg tablet 10 mg PO DAILY 08/12/21 10/16/21 Unknown History Exam Airway Mallampati Class: II TM Dist: >3cm Neck ROM: Full Loose/Missing/Broken Teeth: Yes Heart: rrr Lungs: bl breath sounds Assessment and Plan Final Anesthetic Review NPO: Yes ASA Class: III Patient Risk: Intermediate Procedure Risk: Intermediate Anesthetic Plan Anesthetic Plan: GA Disposition: Standard PACU
[2021-10-20] VITALS (20 sets, daily range): BP systolic 120–132; BP diastolic 60–78; PULSE 72–92; RESP 11–18; TEMP 36.1–37; O2SAT 95–100
[2021-10-20 06:47] LABS: UPreg QC Valid YES; Urine Pregnancy NEGATIVE (NEGATIVE)
[2021-10-20 06:52] LABS: COVID-19 Test Negative (Negative)
[2021-10-20] MEDS: Lactated Ringers 1,000 ML 999 ML IV (07:16)
--- NOTE | 2021-10-20 10:26 | P.DS_ITS ---
DS: Providers Provider Date of Service: 10/21/21 Date of admission: 10/20/21 06:15 Primary care physician: SHIRA Charles DS: Summary Hospital Course Hospital Course: ADMITTING DIAGNOSIS: morbid obesity, back pain, PCOS, anxiety ? DISCHARGE DIAGNOSIS: same, s/p laparoscopic sleeve gastrectomy ? PAST SURGICAL HISTORY: Laparoscopic cholecystectomy ? PROCEDURE: upper endoscopy, laparoscopic sleeve gastrectomy ? DISCHARGE SUMMARY: ? History of Present Illness: ? The patient is a??35 year-old woman with a BMI of?47.2 kg/m2 and associated co-morbidities as described above. The patient had extensive work-up,lost?28.8 lbs preoperatively and was electively scheduled for laparoscopic, possible open sleeve gastrectomy and gastropexy. Risks and complications of the surgery were discussed with the patient in advance, particularly the possibility of , pulmonary embolism, anastomotic leak, bleeding, bowel injury, GERD, cardiac, renal or pulmonary complications. The patient understood all the risks and was in agreement with the surgical plan. ? Hospital Course: ? The patient underwent an uneventful laparoscopic sleeve gastrectomy with gastropexy on the day of admission. Postoperatively, the patient was transferred to the surgical floor. The patient received IV Acetaminophen and IV dilaudid for pain control. Patient was started on bariatric phase 1 diet POD #0. On postoperative day one, the patient was feeling well without nausea, vomiting, fevers, or tachycardia. The patient had some mild incisional pain and the abdomen was soft. ? On the morning of postoperative day one, the patient was continued on 1 ounce of water or ice every half hour. During the day, the patient did fairly well, having some incisional pain, but able to ambulate adequately and to tolerate liquids well. ? Since the patient is doing well, we decided that the patient was ready to be discharged. The patient was given instructions to follow-up with me next week and to call my office for any fever over 101, persistent abdominal pain, nausea, vomiting, GERD, symptoms of DVT such as calf tenderness, or leg swelling, or pulmonary embolism such as chest pain or shortness of breath. The patient was also instructed to drink 40-60 ounces of liquids per day using the 1-ounce cups. The patient had been given prescriptions for Tylenol for pain, Zofran prn for nausea, and pantoprazole and carafate previously. The patient was encouraged to ambulate and use the incentive spirometer. The patient was allowed to shower, but no baths, and encouraged to stay active at home. All of these instructions were given to the patient personally. All questions were answered and the patient understood all instructions, the instructions were also given to the patient in print. Status at Discharge Functional status at discharge: independent ambulation Time Spent with Patient Time attestation: Total time spent providing and/or coordinating discharge services: Discharge coordination time: Less than 30 minutes Quality: Stroke Does the patient have a stroke diagnosis?: No Physical Exam Vital Signs: Vital Signs: Last Vital Signs Temp 98.5 F 10/20/21 06:24 Pulse 92 10/20/21 06:24 Resp 16 10/20/21 06:24 BP 128/78 10/20/21 06:24 Pulse Ox 97 10/20/21 06:24 BMI result Body Mass Index 42.3 DS: Data Data Completed and Pending Pending studies at discharge: Pending at discharge 10/20/21 09:49 Surgical [PTH] Routine Labs on day of discharge: Laboratory Results - last 24 hr 10/20/21 10/20/21 10/20/21 06:05 06:10 06:24 Urine Test NEGATIVE COVID-19 (RADHA) Negative COVID-19 Clin Com See Note Blood Type B Positive Antibody Screen NEGATIVE Discharge Plan Discharge Patient Disposition: Home, Self-Care Discharge Diagnosis: s/p laparoscopic sleeve gastrectomy Referrals: Subha Sherman PA [Primary Care Provider] - 1 Week Discharge Medications: Continued ondansetron HCl [Zofran] 4 mg tablet 4 mg PO Q12H Qty: 20 RF: 0 escitalopram oxalate 10 mg tablet 10 mg PO DAILY RF: 0 pantoprazole 40 mg tablet,delayed release (DR/EC) 40 mg PO DAILY Qty: 30 RF: 2 sucralfate 100 mg/mL suspension 10 ml PO BID Qty: 400 RF: 2 Held norgestimate-ethinyl estradiol 0.25-35 mg-mcg tablet 1 tab PO DAILY Qty: 84 RF: 0 Hold Instructions: until discussed with Dr Armstrong Discontinued polyethylene glycol 3350 [Miralax] 17 gram powder in packet 17 g PO DAILY Qty: 14 RF: 0 Discharge Orders: Discharge Order (Routine); Ordered 12/15/21 Ordered By: Kenneth Armstrong Activity on Discharge: No heavy lifting Stand Alone Forms: Patient Portal Discharge page Care Plan Goals: weight loss Health Concerns: obesity Plan of Treatment: No tub baths, sex or returning to work until discussed at first post op appointment. No exercise, alcohol, tobacco or illegal drug use. Continue to use incentive spirometer hourly while awake. Walk in home for 5- 10 minutes every 2 hours during the first week. Follow all instructions in the bariatric handbook and call with any questions.Discharge Instructions 1. Please call your doctor or come back to the emergency room should any new symptoms arise. 2. You will receive a courtesy call from [facility] 24-48 hours after discharge. 3. Activity: abstain from alcohol, practice limited stair climbing, no bending, no driving, no exercise, no illicit substances, no lifting, no sex, no tub bath, no work. 4. Diet: continue as discussed with Dr. Armstrong. 5. Dressing Change/Wound Care: Your incision is covered by clear bandages and guaze underneath. If the area is tender, you may apply an ice pack for short intervals (no more than 20 minutes on, followed by at least 20 minutes off). Do not apply heat. Do not use creams, lotions, or topical antibiotics unless instructed to do so by your surgeon. These can cause infection or allergic reaction. 6. Call your doctor if: - Your temperature exceeds 101.5 F - You experience excessive pain or swelling - You have an unexpected reaction to medication - You have excessive bleeding - You experience continued vomiting/nausea - Your incision begins to separate - Your incision shows signs of infection such as increased redness, swelling, excessive pain, heat, or drainage (light blood or clear fluid is normal) 7. General instructions: No lifting greater than 5 lbs for the next 4 weeks[address] driving within 24 hours of taking narcotic pain medications. If you do not move your bowels in the next 2 days, please take milk of magnesia over the counter. Please follow the post op diet and do not advance your diet until you are seen in the office in about 2 weeks. Please walk around your home every hour or two to prevent blood clots from forming in your legs. You do not need to wake from sleeping to walk. Please sleep in a bed or couch to prevent kinking at the hips and knees. Please take your incentive spirometer (your lung practice physician) home with you and use it for the next few days to prevent pneumonias. You may shower, no hot tubs, baths or swimming pools. Please call the office with any questions or concerns such as increasing abdominal pain, fever, chills, shortness of breath, chest pain, leg pain or swelling, or redness or drainage from your incisions. Please stay on stage 3 diet which includes sugar free clear liquids such as ice pops and jello and broth and crystal light. Avoid all carbonation. Please drink 3 protein shakes with at least 25-30 grams of protein daily or 3 of the Celebrate 4:1 shakes which can be purchased in our office. The Celebrate shakes have all of the bariatric vitamins you need if you consume these shakes. If you are drinking other protein shakes, you will need to purchase the Celebrate multivitamins and calcium that we provide in the office (they will provide all the vitamins you need). Please make sure you are consuming at least 40-60 ounces of water in addition to your 3 protein shakes daily. Do not hesitate to contact the office with any questions at . The patient's medical history has been reviewed and they are considered low risk for post op DVT and therefore DVT prophylaxis is not considered necessary. Travel after surgery was reviewed. The patient has not disclosed any travel plans during the first 30 days after surgery and they have been advised that within the first 30 days after surgery any bus, plane, train or car travel over 2 hours in duration is contraindicated due to the possibility of developing blood clots from immobility. Any travel, needs to include periods of ambulation of 10 minutes in duration every 2 hours.? The patient was instructed to discuss any plans for travel during this period with their bariatric surgeon. Assessment: stable for d/c home s/p laparoscopic sleeve gastrectomy
--- NOTE | 2021-10-20 10:31 | PM.OP ---
Brief Operative Note Date of Service: 10/20/21 Pre-op diagnosis: Morbid obesity and comorbidities (see below) Post-op diagnosis: same Procedure: INITIAL PATIENT BMI ON PRESENTATION AT OUR OFFICE: 47.8 kg/m2 LAST BMI BEFORE SURGERY: 42.6 kg/m2 COMORBIDITIES: PCOS, anxiety, diaphragmatic hernia, back pain The patient participated in an intensive weekly lifestyle ?intervention and exercise program during which the patient ?has lost between the initial office visit and the last preoperative visit 30.6lbs, or 12.08% of initial actual body weight. The patient met the BMI-criteria for bariatric surgery based on the BMI on initial presentation. The patient should not be penalized for achieving such weight loss because ?it is not sustainable long-term without surgical intervention and it was achieved in preparation for bariatric surgery ?under my direction and based on my published research ([email or web address]) ?that a 10% preoperative weight loss improves long-term weight loss after surgery and reduces perioperative complications.? Insurance carriers such as [facility] have endorsed my recommendations ?and have included in their policies criteria to include a 10% preoperative weight loss requirement. PROCEDURE: Esophago-gastroscopy, laparoscopic lysis of adhesions, laparoscopic sleeve gastrectomy and laparoscopic gastropexy INDICATIONS: This is a 35 year-old female who was electively scheduled for laparoscopic, possibly open sleeve gastrectomy. The risks and complications of the procedure were discussed with the patient in advance, particularly the possibility of ; pulmonary embolism; staple line leak; bleeding; GERD; cardiac, pulmonary, or renal complications; as well as long-term problems such as insufficient weight loss, vitamin deficiency, strictures, or ulcers. The patient understood all the risks, and was in agreement to proceed with surgery. DESCRIPTION OF PROCEDURE: After informed consent was obtained from the patient, the patient was given preoperative antibiotics, and was transferred to the operating room. After successful induction of general anesthesia, pneumatic compressive devices were placed on both lower extremities. An upper endoscopy was performed next. The oropharynx and esophagus appeared to be within normal limits. There was no diaphragmatic hernia presentI. The stomach was entered. Then after all fluid and air were suctioned and the stomach was fully decompressed, the scope was withdrawn and secured in the mid esophagus. The patient was then prepped and draped in the usual sterile manner, and abdominal access was established at the right upper quadrant with the Arie technique. A 12 mm blunt port was inserted, and the abdomen was insufflated with CO2 to a pressure of 15 mmHg. Under direct visualization, additional ports were placed, specifically two 5 mm Versi-step ports to the left upper quadrant, and a 5 mm Versi-Step port to the right upper quadrant. 1% lidocaine plain was used to infiltrate all port sites as well as all fascia defects. Following that, the patient was placed in a steep reverse Trendelenburg position. An additional 5 mm port was placed to the right flank for the Mediflex retractor that was used to retract the left lobe of the liver. The gastro-esophageal fat pad was opened with the ultrasonic device (Thunderbeat, Olympus) and the anterior esophagus and hiatus were exposed. The angle of His was opened with the ultrasonic device the fundus of the stomach from any diaphragmatic and splenic attachments. I then opened the gastrocolic ligament between the transverse colon and the greater curvature of the stomach with the ultrasonic device to enter the lesser sac and facilitate the ligation of the short gastric vessels. I started at a mid-point along the greater curvature and using the Thunderbeat, all short gastric vessels were divided all the way to the angle of His until the left martín was completely dissected at its entirety. I then divided the gastro-colic ligament distally to a distance of about 3-4 cm proximal to the esophagus. There were extensive congenital adhesions between the pancreas and posterior gastric wall. Those were lysed completely with the ultrasonic device. Adhesiolysis took approximately 45 min to complete. The stomach was then divided transversely with one Endo BENJAMIN-45 purple, three BENJAMIN-45 orange loads and two BENJAMIN-60 articulating orange loads using the AEON stapler and loads. Every effort was made that the gastric sleeve had a tubular shape and an even caliber throughout. Once the sleeve resection was completed, the staple line of the gastric sleeve was reinforced with Hemoclips. The resected stomach was retrieved without difficulty from the Arie port. A gastropexy was then performed in order to prevent postoperative GERD and partial gastric volvulus. Several interrupted 2.0 Surgidac sutures were placed between the sleeve's staple line and the previously divided greater omentum and gastro-colic ligament using the Endo-Stitch device. ?An upper endoscopy was performed. There was no narrowing at the GE junction. The scope was easily advanced all the way to the pylorus which was clearly visualized. There was no narrowing anywhere and the sleeve's caliber was even throughout. The sleeve's staple line was inspected and there was no evidence of ischemia, bleeding or dehiscence. At that point the gastroscope was withdrawn from the patient?s mouth while we were decompressing the bowel and the stomach from any remaining air. I looked into the lesser sac to see how the sleeve was situating and it was situating well. There was no bleeding from the staple line, spleen, or short gastric vessels. The Mediflex retractor was removed, and the undersurface of the liver was inspected and there was no bleeding. The patient was placed in supine position. I closed the fascial defect of the 12 mm port site with a figure of eight #1 Polysorb suture. Then 100 cc 0.25 % Marcaine plain with 10 mg of Dexamethasone were used to infiltrate the fascial closure as well as all skin incisions. At this point, the abdomen was deflated, all ports were removed under direct vision, and no bleeding was noted from any of the port sites. The skin incisions were irrigated with saline and were closed with 4-0 absorbable monofilament sutures. Steri-Strips and OpSites were used to cover all incisions. The patient was extubated and was transferred in stable condition to the recovery room for further care. I was present and performed all swann parts of the procedure. Anisa Corral was the cutter first. There were no residents to assist with this case. Bebeto Armstrong MD, PhD, FACS Surgeon: Kenneth Armstrong MD Anesthesia: GETA, local and other (TAP block) Was an Drill Sergeant used for this Procedure?: Yes Drill Sergeant: Freddy Corral Estimated blood loss (mL): 10 IV fluids (mL): 3,100 Urine output (mL): 0 (No Whitaker to record) Pathology: other (Stomach) Condition: stable Disposition: PACU
--- NOTE | 2021-10-20 10:36 | PM.PNGS ---
Subjective Subjective Date of Service: 10/21/21 Interval history: Patient has mild incisional pain, but was able to ambulate and use the incentive spirometer. She is tolerating phase 1 bariatric diet Physical Exam Vital Signs: Vital Signs: Last Vital Signs Temp 98.5 F 10/20/21 06:24 Pulse 92 10/20/21 06:24 Resp 16 10/20/21 06:24 BP 128/78 10/20/21 06:24 Pulse Ox 97 10/20/21 06:24 BMI result Body Mass Index 42.3 GI: Inspection: Yes normal to inspection, Yes incision (clean, dry and intact) and Yes obesity Extrem: Right lower extremity: normal to inspection (no calf tenderness) Left lower extremity: normal to inspection (no calf tenderness) Objective Data Active Medications Hydromorphone HCl (Hydromorphone Hcl 0.5 Mg/0.5 Ml Syringe) 0.25 mg IVPUSH Q5M PRN; Protocol PRN Reason: Pain, Severe (Pain Scale 7-10) Lactated Ringer's (Lr) 1,000 mls @ 100 mls/hr IVCONT .Q10H SAFIA Promethazine HCl 12.5 mg/ (Sodium Chloride) 50.5 mls @ 202 mls/hr IV ONCE PRN PRN Reason: Nausea and Vomiting Labs CBC & Chem 7: 10/21/21 06:02 10/21/21 06:02 Labs: Laboratory Results - last 24 hr 10/20/21 10/20/21 10/20/21 06:05 06:10 06:24 Urine Test NEGATIVE COVID-19 (RADHA) Negative COVID-19 Clin Com See Note Blood Type B Positive Antibody Screen NEGATIVE Procedures Date of Service Date of Service: 10/21/21 Progress Note: A&P Assessment and plan (1) S/P laparoscopic sleeve gastrectomy: Status: Acute Assessment and Plan: s/p laparoscopic sleeve gastrectomy, lysis of adhesions and gastropexy Doing well Check am labs. If OK, will discharge home? (2) Morbid obesity: Status: Acute (3) PCOS (polycystic ovarian syndrome): Status: Acute (4) Anxiety: Status: Acute (5) Back pain: Status: Acute (6) Diaphragmatic hernia: Status: Acute Fall Risk Details Current Medications: Current Medications Hydromorphone HCl (Hydromorphone Hcl 0.5 Mg/0.5 Ml Syringe) 0.25 mg IVPUSH Q5M PRN; Protocol PRN Reason: Pain, Severe (Pain Scale 7-10) Lactated Ringer's (Lr) 1,000 mls @ 100 mls/hr IVCONT .Q10H SAFIA Promethazine HCl 12.5 mg/ (Sodium Chloride) 50.5 mls @ 202 mls/hr IV ONCE PRN PRN Reason: Nausea and Vomiting Time Spent With Patient Time: Total time spent is greater than 50% in coordination of care (as documented) at patient's floor/unit and/or counseling patient: Time with patient: less than 15 minutes Quality Stroke Does the patient have a stroke diagnosis?: No VTE Prior VTE?: No VTE Risk Level:: Surgical - moderate VTE Device Contraindication: N/A - Device Ordered VTE Drug Contraindication: Treatment Not Indicated
[2021-10-20 11:16] LABS: Hematocrit 41.5 % (37.0-47.0); Hemoglobin 13.7 g/dl (12.0-16.0)
[2021-10-20] MEDS: ceFAZolin Sodium/Dextrose,Iso 2 GM/50 ML PIGGYBACK IV (14:00)
[2021-10-20] MEDS: Lactated Ringers 1,000 ML 100 ML IVCONT (15:09)
[2021-10-20] MEDS: ondansetron HCL 4 MG/2 ML VIAL IVPUSH (16:49)
[2021-10-20] MEDS: Famotidine/PF 20 MG/2 ML VIAL IVPUSH (20:21)
[2021-10-20] MEDS: 0.9 % Sodium Chloride Flush 3 ML SYRINGE IVFLUSH (20:21)
[2021-10-21] MEDS: Lactated Ringers 1,000 ML 100 ML IVCONT (00:03)
[2021-10-21] MEDS: ondansetron HCL 4 MG/2 ML VIAL IVPUSH ×2 (00:06→07:06)
[2021-10-21 04:00] VITALS: BP 129/71; PULSE 75; RESP 18; TEMP 36.5; O2SAT 96
[2021-10-21 07:04] VITALS: BP 120/65; PULSE 90; RESP 16; TEMP 36.3; O2SAT 99
[2021-10-21] MEDS: Famotidine/PF 20 MG/2 ML VIAL IVPUSH (07:06)
[2021-10-21 07:11] LABS: Anion Gap 18 (12-20); Blood Urea Nitrogen 6 mg/dL (9-16); Calcium 8.9 mg/dL (8.4-10.2); Carbon Dioxide 16 mmol/L (22-29); Chloride 108 mmol/L (96-108); Estimated Glomerular Filt Rate > 60; Glucose Random 87 mg/dL (60-115); Sodium 137 mmol/L (135-145)
[2021-10-21 07:12] LABS: Basophils Percent Auto 0.2 % (0-2); Hematocrit 40.3 % (37.0-47.0); Hemoglobin 13.6 g/dl (12.0-16.0); Imm Gran Abs Auto 0.06 X10*3/uL (0.00-0.03); Imm Gran Pct Auto 0.6 % (0.0-0.4); Lymphocytes Absolute Auto 1.5 X10*3/uL (1.2-4.9); Lymphocytes Percent Auto 14.1 % (20-40); MANUAL DIFF FLAG SCAN; Mean Corpuscular HGB Conc 33.7 g/dl (31.0-35.0); Mean Corpuscular Hemoglobin 29.4 pg (27.0-33.0); Mean Corpuscular Volume 87.2 fL (80.0-98.0); Monocytes Absolute Auto 0.8 X10*3/uL (0.1-1.2); Monocytes Percent Auto 7.3 % (2-11); Neutrophils Percent Auto 77.8 % (45-73); PLT CLUMP 1; Red Blood Count 4.62 X10*6/uL (4.20-5.50); Red Cell Distribution Width 12.6 % (11.0-16.0); SCAN SMEAR FLAG 1
[2021-10-21 07:16] LABS: White Blood Count 10.3 X10*3/uL (4.8-10.8)
[2021-10-21 07:42] LABS: Platelet Count 161 X10*3/uL (160-400)
[2021-10-21 07:43] LABS: SLIDE REVIEW VERIFIED
--- NOTE | 2021-10-21 09:04 | MHC.CM.PN ---
EMR REVIEWED, PT ADMITTED S/P LAP SLEEVE GASTRECTOMY, PT A&OX4, PT REPORTS LIVING W/ AND 5YO SON, PT WORKS, IS INDEPENDENT W/ALL CARE, NO DME AND NO HOME SERVICE, PT VERIFIES PCP [facility] PASTOR AND HCP IS EMILY POWELL [phone], COPY REQUESTED. D/C PLAN: HOME TODAY SELF-CARE, FOR TRANSPORT.
--- NOTE | 2021-10-22 07:20 | HO.POSTANES ---
Post Anesthesia Evaluation Post Anesthesia Evaluation Vital Signs: Patient seen on 10/21/21 at 720am. Computer system was having issues and the reason that I am documenting now. Vital signs were stable Anesthesia: General Endotracheal-GETA Mental Status: Awake Pain Control: Satisfactory Nausea/Vomiting: None Hydration: Adequate Anesthesia-Related Issues: No Anes. Related Issues
== END 2021-10-21 09:57 | disposition home or self-care (01) | DRG 403 ==
LOC: HO.SSSA 10:26 → HO.S3 15:41
PROVIDERS: Nurse Practitioner; Physician Assistant Surgical; Absent Provider Physician Assistant; Admitting Provider Surgery; PCP Physician Assistant; Visit Provider Surgery
PROC: 0DB64Z3 Excision of Stomach, Percutaneous Endoscopic Approach, Vertical (ICD-10-PCS; CPT 43845; principal; 2021-10-20 07:30)
DX: E66.01 Morbid (severe) obesity due to excess calories (principal); E28.2 Polycystic ovarian syndrome; K66.0 Peritoneal adhesions (postprocedural) (postinfection); Z68.41 Body mass index [BMI] 40.0-44.9, adult; M54.9 Dorsalgia, unspecified; F41.9 Anxiety disorder, unspecified; Z20.822 Contact with and (suspected) exposure to COVID-19; Z88.2 Allergy status to sulfonamides; Z79.899 Other long term (current) drug therapy
CPT/HCPCS: 36415; 80048; 81025; 85014; 85018; 85025; 86850; 86900; 86901; 87635; 88307; 88342; 93005; 99024; A4649; J0131; J0690; J1100; J1170; J2250; J2370; J2405; J2550; J3010

== ENCOUNTER → 2021-10-26 07:20 | Outpatient (BNVA) | payer BC, SELFPAY | PROVIDERS: PCP Physician Assistant; Visit Provider Surgery ==

== ENCOUNTER → 2021-11-30 10:51 | Outpatient (BNVA) | payer BC, SELFPAY | PROVIDERS: PCP Physician Assistant; Visit Provider Physician Assistant Surgical ==

== ENCOUNTER 2021-11-30 11:19 | Emergency (ER) | payer BC, SELFPAY ==
[2021-11-30 11:31] VITALS: BP 135/76; PULSE 75; RESP 19; TEMP 36.6; O2SAT 99; BMI 37.5
[2021-11-30 11:50] LABS: MANUAL DIFF FLAG NO
[2021-11-30 11:52] LABS: Basophils Percent Auto 0.2 % (0-2); Eosinophils Absolute Auto 0.1 X10*3/uL (0.0-0.4); Hematocrit 44.1 % (37.0-47.0); Hemoglobin 14.6 g/dl (12.0-16.0); Imm Gran Abs Auto 0.03 X10*3/uL (0.00-0.03); Imm Gran Pct Auto 0.3 % (0.0-0.4); Lymphocytes Absolute Auto 1.7 X10*3/uL (1.2-4.9); Lymphocytes Percent Auto 19.4 % (20-40); Mean Corpuscular HGB Conc 33.1 g/dl (31.0-35.0); Mean Corpuscular Hemoglobin 29.9 pg (27.0-33.0); Mean Corpuscular Volume 90.4 fL (80.0-98.0); Mean Platelet Volume 11.2 fL (9.4-12.3); Monocytes Absolute Auto 0.6 X10*3/uL (0.1-1.2); Monocytes Percent Auto 7.2 % (2-11); Neutrophils Absolute Auto 6.2 x10*3/uL (2.0-8.3); Neutrophils Percent Auto 71.9 % (45-73); Platelet Count 200 X10*3/uL (160-400); Red Blood Count 4.88 X10*6/uL (4.20-5.50); Red Cell Distribution Width 13.7 % (11.0-16.0); White Blood Count 8.6 X10*3/uL (4.8-10.8)
[2021-11-30 11:57] LABS: UPreg QC Valid YES; Urine Pregnancy NEGATIVE (NEGATIVE)
[2021-11-30 12:07] LABS: COVID-19 Test Negative (Negative); IDNOW Serial# 9DD0AD1C
[2021-11-30 12:07] LABS: Anion Gap 17 (12-20); Appearance Urine CLEAR; Blood Urea Nitrogen 7 mg/dL (9-16); Calcium 9.5 mg/dL (8.4-10.2); Carbon Dioxide 22 mmol/L (22-29); Chloride 103 mmol/L (96-108); Color Urine DK YELLOW; Estimated Glomerular Filt Rate > 60; Glucose Random 70 mg/dL (60-115); Glucose Urine UA NEG (NEG); Leukocyte Esterase Urine NEG (NEG); Nitrite Urine NEG (NEG); Potassium 4.2 mmol/L (3.3-5.1); Sodium 138 mmol/L (135-145); Specific Gravity - Urine >= 1.030 (1.005-1.025); Urine Blood NEG (NEG); Urine Ketones >=80 MG/DL (NEG); Urine Protein TRACE MG/DL (NEG-TRACE)
--- NOTE | 2021-11-30 13:58 | ED_ITS ---
HPI - Nausea/Vomiting/Diarrhea General Chief complaint: Nausea/Vomiting/Diarrhea Stated complaint: Nausea sent from dr quach Time Seen by Provider: 11/30/21 13:58 Source: patient Mode of arrival: ambulatory Limitations: no limitations History of Present Illness HPI Narrative: 35-year-old female with a history of laparoscopic sleeve gastrectomy on October [address] Armstrong presents to the ER with nausea x3 days and decreased p.o. intake. She was at the Bariatric surgery office earlier today for her 6 week postop visit and sent to the ER for labs and IVF. Patient reports last she had a busy day at work and ate 1 of her protein shakes later than she usually does because she was busy at work. Immediately after eating it she felt nauseated. She never vomited but remained nauseous since. She has not had any diarrhea, last BM 2 days ago. No abdominal pain. She reports a GI bug is going around her son's daycare but he does not have it. She tried left over zofran from her surgery without any improvement. MD elicited complaint: nausea Pertinent past history: other (recent bariatric surgery) Onset (ago): day(s) (4) Associated nausea: Yes Associated abdominal pain: No Severity: moderate Exacerbating factors: eating Relieving factors: none Associated symptoms: denies other symptoms Related Data Home Medications Medication Instructions Recorded Confirmed escitalopram oxalate 10 mg tablet 10 mg PO DAILY 08/12/21 11/30/21 Previous Rx's Medication Instructions Recorded norgestimate 0.25 mg-ethinyl 1 tab PO DAILY #84 tab 08/22/21 estradiol 35 mcg tablet ondansetron HCl 4 mg tablet 4 mg PO Q12H #20 tab 09/17/21 (Zofran) pantoprazole 40 mg tablet,delayed 40 mg PO DAILY #30 tab 10/07/21 release sucralfate 100 mg/mL oral 10 ml PO BID #400 ml 10/07/21 suspension metoclopramide HCl 10 mg tablet 10 mg PO Q6H PRN #7 tab 11/30/21 (Reglan) Allergies Allergy/AdvReac Type Severity Reaction Status Date / Time Sulfa (Sulfonamide Allergy Unknown SWELLING Verified 11/30/21 10:55 Antibiotics) [SULFA(SULFONAMIDE ANTIBIOTICS)] Review of Systems Review of Systems: Constitutional: No Fever, No Chills ENT/Mouth: No sore throat, No Rhinorrhea, No Swallowing Difficulty Cardiovascular: No Chest Pain, No SOB Respiratory: No Cough, No Sputum, No Wheezing, No dyspnea Gastrointestinal: + Nausea, No Vomiting, No Diarrhea, No abdominal Pain, No Hematochezia, No Melena Genitourinary: No Dysuria, No Urinary Frequency, No Hematuria Musculoskeletal: No joint pain, No Myalgias Skin: No Skin Lesions, No rash Neuro: No Weakness, No Numbness, No Dizziness, No Headache Psych: + Anxiety/Panic Heme/Lymph: No Bruising, No Lymphadenopathy Gastrointestinal: Gastrointestinal: Reports nausea PMFSH Past Medical History Medical History Back pain Diaphragmatic hernia PCOS (polycystic ovarian syndrome) anxiety Surgical History H/O LEEP Hx of cholecystectomy Hx of tonsillectomy Hx of wisdom tooth extraction S/P laparoscopic sleeve gastrectomy Family History Family History Mother No problems noted. Father No problems noted. Brother No problems noted. Social History Social History Are you a primary chiropractic care to a significant other at home: No Do you presently have visiting nurse or other home services: No Alcohol intake: current Alcohol intake frequency: holidays/special occasions only Patient Tobacco Use Status: Never used Tobacco Use of substances other than those prescribed or required for medical reasons: No Advance Directives: No Advance Directives Information Provided: Yes service: No Current occupational status: employed Sexual orientation: Straight/Heterosexual Gender identity: Female Physical Exam Vital Signs: Vital Signs: Last Vital Signs Temp 98 F 11/30/21 11:31 Pulse 61 11/30/21 14:25 Resp 18 11/30/21 14:25 BP 115/59 L 11/30/21 14:25 Pulse Ox 100 11/30/21 14:25 BMI result Body Mass Index 37.5 Appearance: Alert. Oriented X3. No acute distress. Eyes: Pupils equal, round and reactive to light. ENT: Pharynx normal. Neck: Normal inspection. Neck supple. CVS: Normal heart rate and rhythm. Pulses normal. Respiratory: No respiratory distress. Breath sounds normal. Abdomen: Soft and nontender. +BS x4 Skin: Skin warm and dry. Normal skin color. Normal skin turgor. No rashes. Extremities: No lower extremity edema. Neuro: Oriented X 3. No motor deficit. No sensory deficit. Course Course Course Narrative: 35-year-old female with a history of recent laparoscopic sleeve gastrectomy 6 weeks ago presents to the ER with persistent nausea for the last 4 days. Sent in from the bariatric surgery office for labs and IV fluids. Arrival patient is hemodynamically stable and afebrile. She is still nauseous but has not vomited. She is tolerating small amounts of p.o.. Will check basic labs and hydrate her. Will give a trial of Reglan. No relief at home with Zofran. Reevaluation(s) Reevaluation #1: Labs are unremarkable. Getting fluids and reglan now. Reevaluation #2: Patient feels much better. Stable for d/c home with Reglan and Bariatric Surgery follow up. MDM - Nausea/Vomiting/Diarrhea Lab Data Result diagrams: 11/30/21 11:44 11/30/21 11:44 Labs: Lab Results 11/30/21 11/30/21 11/30/21 Range/Units 11:44 11:44 11:44 WBC 8.6 (4.8-10.8) X10*3/uL RBC 4.88 (4.20-5.50) X10*6/uL Hgb 14.6 (12.0-16.0) g/dl Hct 44.1 (37.0-47.0) % MCV 90.4 (80.0-98.0) fL MCH 29.9 (27.0-33.0) pg MCHC 33.1 (31.0-35.0) g/dl RDW 13.7 (11.0-16.0) % Plt Count 200 (160-400) X10*3/uL MPV 11.2 (9.4-12.3) fL Immature Gran % (Auto) 0.3 (0.0-0.4) % Neut % (Auto) 71.9 (45-73) % Lymph % (Auto) 19.4 L (20-40) % [place] % (Auto) 7.2 (2-11) % Eos % (Auto) 1.0 (0-4) % Baso % (Auto) 0.2 (0-2) % Lymph # (Auto) 1.7 (1.2-4.9) X10*3/uL [place] # (Auto) 0.6 (0.1-1.2) X10*3/uL Eos # (Auto) 0.1 (0.0-0.4) X10*3/uL Baso # (Auto) 0.0 (0.0-0.2) X10*3/uL Abs Immat Gran (auto) 0.03 (0.00-0.03) X10*3/uL Absolute Neuts (auto) 6.2 (2.0-8.3) x10*3/uL Absolute Nucleated RBC 0.000 (0.0-0.012) X10*3/uL Nucleated RBC % (auto) 0.0 (0.0-0.2) /100WBC Sodium 138 (135-145) mmol/L Potassium 4.2 (3.3-5.1) mmol/L Chloride 103 (96-108) mmol/L Carbon Dioxide 22 (22-29) mmol/L Anion Gap 17 (12-20) BUN 7 L (9-16) mg/dL Creatinine 0.73 (0.5-1.4) mg/dL Estim Creat Clear Calc 112.0 Estimated GFR > 60 Random Glucose 70 (60-115) mg/dL Calcium 9.5 D (8.4-10.2) mg/dL Urine Color DK YELLOW Urine Appearance CLEAR Urine pH 6.0 (5.0-8.0) Ur Specific [place] >= 1.030 H (1.005-1.025) Urine Protein TRACE (NEG-TRACE) MG/DL Urine Glucose (UA) NEG (NEG) MG/DL Urine Ketones >=80 (NEG) MG/DL Urine Blood NEG (NEG) Urine Nitrite NEG (NEG) Ur Leukocyte Esterase NEG (NEG) Urine Test (NEGATIVE) COVID-19 (RADHA) (Negative) COVID-19 Clin Com 11/30/21 11/30/21 Range/Units 11:44 11:45 WBC (4.8-10.8) X10*3/uL RBC (4.20-5.50) X10*6/uL Hgb (12.0-16.0) g/dl Hct (37.0-47.0) % MCV (80.0-98.0) fL MCH (27.0-33.0) pg MCHC (31.0-35.0) g/dl RDW (11.0-16.0) % Plt Count (160-400) X10*3/uL MPV (9.4-12.3) fL Immature Gran % (Auto) (0.0-0.4) % Neut % (Auto) (45-73) % Lymph % (Auto) (20-40) % [place] % (Auto) (2-11) % Eos % (Auto) (0-4) % Baso % (Auto) (0-2) % Lymph # (Auto) (1.2-4.9) X10*3/uL [place] # (Auto) (0.1-1.2) X10*3/uL Eos # (Auto) (0.0-0.4) X10*3/uL Baso # (Auto) (0.0-0.2) X10*3/uL Abs Immat Gran (auto) (0.00-0.03) X10*3/uL Absolute Neuts (auto) (2.0-8.3) x10*3/uL Absolute Nucleated RBC (0.0-0.012) X10*3/uL Nucleated RBC % (auto) (0.0-0.2) /100WBC Sodium (135-145) mmol/L Potassium (3.3-5.1) mmol/L Chloride (96-108) mmol/L Carbon Dioxide (22-29) mmol/L Anion Gap (12-20) BUN (9-16) mg/dL Creatinine (0.5-1.4) mg/dL Estim Creat Clear Calc Estimated GFR Random Glucose (60-115) mg/dL Calcium (8.4-10.2) mg/dL Urine Color Urine Appearance Urine pH (5.0-8.0) Ur Specific [place] (1.005-1.025) Urine Protein (NEG-TRACE) MG/DL Urine Glucose (UA) (NEG) MG/DL Urine Ketones (NEG) MG/DL Urine Blood (NEG) Urine Nitrite (NEG) Ur Leukocyte Esterase (NEG) Urine Test NEGATIVE (NEGATIVE) COVID-19 (RADHA) Negative (Negative) COVID-19 Clin Com See Note Critical Care Time Critical Care Time Critical Care Time: No Discharge Plan Discharge Clinical Impression: Nausea Patient Disposition: Home, Self-Care Instructions: Acute Nausea and Vomiting (ED) Additional Instructions: Your lab workup today was unremarkable. Your COVID test was negative. Take the prescribed medication as needed for nausea. Follow back up with bariatric surgery as needed. If you develop new or worsening symptoms call 911 or come back to the ER for further evaluation. Prescriptions: New metoclopramide HCl [Reglan] 10 mg tablet 10 mg PO Q6H PRN (Reason: nausea and vomiting) Qty: 7 RF: 0 No Action norgestimate-ethinyl estradiol 0.25-35 mg-mcg tablet 1 tab PO DAILY Qty: 84 RF: 0 Hold Instructions: until discussed with Dr Armstrong ondansetron HCl [Zofran] 4 mg tablet 4 mg PO Q12H Qty: 20 RF: 0 escitalopram oxalate 10 mg tablet 10 mg PO DAILY RF: 0 pantoprazole 40 mg tablet,delayed release (DR/EC) 40 mg PO DAILY Qty: 30 RF: 2 sucralfate 100 mg/mL suspension 10 ml PO BID Qty: 400 RF: 2 Interventions: ED Discharge Assessment Last Done: 11/30/21 16:05 Discharge Date/Time: 11/30/21 16:05
[2021-11-30] MEDS: 0.9 % Sodium Chloride 1,000 ML 999 ML IVCONT (14:21)
[2021-11-30] MEDS: Metoclopramide HCl 10 MG/2 ML VIAL IVPUSH (14:22)
[2021-11-30 14:25] VITALS: BP 115/59; PULSE 61; RESP 18; O2SAT 100
== END 2021-11-30 16:05 | disposition home or self-care (01) ==
PROVIDERS: Emergency Provider Emergency Medicine; PCP Physician Assistant
DX: R11.0 Nausea (principal); Z20.822 Contact with and (suspected) exposure to COVID-19; Z98.84 Bariatric surgery status
CPT/HCPCS: 36415; 80048; 81003; 81025; 85025; 87635; 96361; 96374; 99284; J2765

== ENCOUNTER 2021-12-23 12:46 | Outpatient (REF) | payer BC, SELFPAY ==
[2021-12-26 15:02] LABS: HPV mRNA E6/E7 rflx Not Detected (Not Detected)
== END 2021-12-23 12:47 | disposition home or self-care (01) ==
LOC: HO.LAB 12:46
PROVIDERS: PCP Physician Assistant; Visit Provider Obstetrics & Gynecology
DX: Z01.419 Encounter for gynecological examination (general) (routine) without abnormal findings (principal); Z11.51 Encounter for screening for human papillomavirus (HPV)
CPT/HCPCS: 87624; 88142

== ENCOUNTER → 2022-01-20 08:21 | Outpatient (BNVA) | payer BC, SELFPAY | PROVIDERS: PCP Physician Assistant; Visit Provider Physician Assistant Surgical | DX: E66.9 Obesity, unspecified (principal); Z71.3 Dietary counseling and surveillance; Z79.899 Other long term (current) drug therapy; Z98.84 Bariatric surgery status | CPT/HCPCS: Q3014 ==

== ENCOUNTER → 2022-03-09 08:16 | Outpatient (BNVA) | payer BC, SELFPAY | PROVIDERS: PCP Physician Assistant; Visit Provider Dietitian, Registered | DX: E66.9 Obesity, unspecified (principal); Z68.33 Body mass index [BMI] 33.0-33.9, adult | CPT/HCPCS: 97803 ==

== ENCOUNTER 2022-04-17 08:49 | Outpatient (REF) | payer BC, SELFPAY ==
[2022-04-17 09:10] LABS: MANUAL DIFF FLAG NO
[2022-04-17 09:20] LABS: Basophils Absolute Auto 0.1 X10*3/uL (0.0-0.2); Basophils Percent Auto 0.7 % (0-2); Eosinophils Absolute Auto 0.1 X10*3/uL (0.0-0.4); Hematocrit 41.3 % (37.0-47.0); Hemoglobin 13.6 g/dl (12.0-16.0); Imm Gran Abs Auto 0.02 X10*3/uL (0.00-0.03); Imm Gran Pct Auto 0.3 % (0.0-0.4); Lymphocytes Absolute Auto 1.7 X10*3/uL (1.2-4.9); Lymphocytes Percent Auto 21.8 % (20-40); Mean Corpuscular HGB Conc 32.9 g/dl (31.0-35.0); Mean Corpuscular Hemoglobin 29.8 pg (27.0-33.0); Mean Corpuscular Volume 90.4 fL (80.0-98.0); Monocytes Absolute Auto 0.4 X10*3/uL (0.1-1.2); Monocytes Percent Auto 5.6 % (2-11); Neutrophils Absolute Auto 5.4 x10*3/uL (2.0-8.3); Neutrophils Percent Auto 70.6 % (45-73); Platelet Count 205 X10*3/uL (160-400); Red Blood Count 4.57 X10*6/uL (4.20-5.50); Red Cell Distribution Width 12.4 % (11.0-16.0); White Blood Count 7.7 X10*3/uL (4.8-10.8)
[2022-04-17 09:34] LABS: Estimated Average Glucose 88 mg/dL; Hemoglobin A1c % 4.7 %
[2022-04-17 09:48] LABS: Anion Gap 12 (12-20); Blood Urea Nitrogen 14 mg/dL (9-16); C Reactive Protein 1.37 mg/dL (< or = 0.50); Calcium 9.1 mg/dL (8.4-10.2); Carbon Dioxide 27 mmol/L (22-29); Chloride 104 mmol/L (96-108); Cholesterol 148 mg/dL; Estimated Glomerular Filt Rate > 60; Glucose Random 79 mg/dL (60-115); HDL Cholesterol 40 mg/dL; Iron 80 mcg/dL (30-160); LDL Cholesterol Calculated 90 mg/dl; Percent Iron Saturation 22 % (15-50); Potassium 4.2 mmol/L (3.3-5.1); Sodium 139 mmol/L (135-145); Total Iron Binding Capacity 359 mcg/dL (228-428); Triglycerides 94 mg/dL; Unsaturated Iron Binding 279 ug/dL
[2022-04-17 10:12] LABS: Ferritin 65 ng/mL (10-122); Insulin 4 uU/mL (2-29); TSH reflex Free T4 1.15 uIU/mL (0.32-4.0)
[2022-04-17 10:50] LABS: Vitamin D 25-OH Total 63.8 ng/mL (>30)
[2022-04-19 10:40] LABS: Folate 18.8 ng/mL (> or = 4.0); Vitamin B12 617 pg/mL (200-900)
[2022-04-19 15:52] LABS: Calcium (PTHI) 9.3 mg/dL (8.6-10.2); PTHI 44 pg/mL (16-77)
[2022-04-21 01:47] LABS: Zinc 76 mcg/dL (60-130)
[2022-04-22 10:36] LABS: Vitamin A 38 mcg/dL (38-98)
[2022-04-22 17:11] LABS: Vitamin B1 14 nmol/L (8-30)
== END 2022-04-17 08:50 | disposition home or self-care (01) ==
LOC: HO.LAB 08:49
PROVIDERS: PCP Physician Assistant; Visit Provider Physician Assistant Surgical
DX: Z98.84 Bariatric surgery status (principal)
CPT/HCPCS: 36415; 80048; 80061; 82306; 82607; 82728; 82746; 83036; 83525; 83540; 83970; 84425; 84443; 84590; 84630; 85025; 86140

== ENCOUNTER → 2022-04-20 13:37 | Outpatient (BNVA) | payer BC, SELFPAY | PROVIDERS: PCP Physician Assistant; Referring Provider Physician Assistant Surgical; Visit Provider Dietitian, Registered | DX: E66.9 Obesity, unspecified (principal); Z68.31 Body mass index [BMI] 31.0-31.9, adult | CPT/HCPCS: 97803 ==

== ENCOUNTER → 2022-05-21 13:09 | Outpatient (BNVA) | payer BC, SELFPAY | PROVIDERS: PCP Physician Assistant; Referring Provider Physician Assistant Surgical; Visit Provider Dietitian, Registered | DX: E66.9 Obesity, unspecified (principal); Z68.30 Body mass index [BMI] 30.0-30.9, adult | CPT/HCPCS: 97803 ==

== ENCOUNTER → 2022-07-21 14:07 | Outpatient (BNVA) | payer BC, SELFPAY | PROVIDERS: PCP Physician Assistant; Referring Provider Physician Assistant Surgical; Visit Provider Dietitian, Registered | DX: E66.9 Obesity, unspecified (principal); Z68.28 Body mass index [BMI] 28.0-28.9, adult | CPT/HCPCS: 97803 ==

== ENCOUNTER → 2023-04-20 12:48 | Outpatient (BNVA) | payer BC, SELFPAY | PROVIDERS: PCP Physician Assistant; Visit Provider Physician Assistant Surgical ==

== ENCOUNTER 2023-06-01 13:19 | Outpatient (AMB) | payer BC, SELFPAY ==
[2023-06-01 13:24] VITALS: BP 120/74; BMI 27.6
--- NOTE | 2023-06-01 13:24 | MHC.OFFVIS ---
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 No complaints. Last Pap/HPV was negative in 12/29 [facility] Medical History (Updated 06/01/23 @ 13:31 by Lalo Alva MD) Back pain Diaphragmatic hernia Dysplasia of cervix, low grade (EAMON 1) PCOS (polycystic ovarian syndrome) anxiety Surgical History H/O LEEP Hx of cholecystectomy Hx of tonsillectomy Hx of wisdom tooth extraction S/P laparoscopic sleeve gastrectomy Family History Mother No problems noted. Father No problems noted. Brother No problems noted. Social History Household Members: Spouse Household Members Other:: son Housing: House Are you a primary daycare assistant to a significant other at home: No Do you presently have visiting nurse or other home services: No Alcohol intake: current Alcohol intake frequency: holidays/special occasions only Patient Tobacco Use Status: Never used Tobacco service: No Current occupational status: employed Current occupation: [employer] Sexually active: Yes Sexual orientation: Straight/Heterosexual Gender identity: Female Female Reproductive History Menstrual Age of Menarche: 14 Date of last menstrual period: 05/02/23 control method: pills Total pregnancies: 1 Full term: 1 Number of Living Children: 1 Date of last pap smear: 12/24/21 Review of Systems Const All systems reviewed & are unremarkable except as noted in HPI and below Card Reports as per HPI Resp Reports as per HPI GI Reports as per HPI and Reports no additional complaints Reports as per HPI Physical Exam Vital Signs: Last Vital Signs BP 120/74 06/01/23 13:24 BMI result Body Mass Index 27.6 Const General: cooperative, healthy appearing and comfortable Chest Chest palpation & inspection: normal inspection of the chest and normal palpation of entire chest wall Breast/axilla inspection: normal inspection of the breasts and normal inspection of the axillae Breast/axilla palpation: normal palpation of the breasts, normal palpation of the axillae and no axillary lymphadenopathy Resp Effort & Inspection: normal respiratory effort Auscultation: clear to auscultation bilaterally Percussion: percussion normal Cardio Palpation: normal PMI Rate: regular rate Rhythm: regular rhythm Heart sounds: no murmurs and no rubs Peripheral pulses: Peripheral pulses 2+ throughout GI Inspection: Yes normal to inspection Palpation (GI): Soft to palpation, nontender, no guarding, not rigid and No hepatosplenomegaly present Percussion: Yes normal to percussion Auscultation: normal bowel sounds Rectal Exam - Female: deferred General: Yes bladder normal to palpation External Female Exam: No lesion Speculum Exam - Vagina: normal appearance of the vagina, normal palpation, normal vaginal discharge and not erythematous Speculum Exam - Cervix: normal appearance of the cervix and normal palpation Bimanual exam- vagina & uterus: normal bimanual exam, normal palpation, uterine size normal, bladder normal to palpation, consistency normal and normal palpation Bimanual Exam- Adnexa, other: normal adnexae, no masses and no tenderness Assessment & Plan Assessment & Plan (1) Well woman exam: Code(s): Z01.419 - Encounter for gynecological examination (general) (routine) without abnormal findings Plan: Cotesting not indicated this year. Counseled the patient about the recommended dietary allowance of 1000 mg of Calcium & 600 IU of vitamin D. The patient was instructed to perform monthly self-breast exams and to schedule an annual exam in a year; All questions answered and the patient verbalized understanding. Instructed the patient to schedule annual exam in a year Coding Level of Care Code Est Pt Prev Care 18-39y(77840) Diagnoses Well woman exam Z01.419
== END 2023-06-01 13:38 | disposition home or self-care (01) ==
LOC: HO.HWS 13:19
PROVIDERS: PCP Physician Assistant; Visit Provider Obstetrics & Gynecology
DX: Z01.419 Encounter for gynecological examination (general) (routine) without abnormal findings (principal)
CPT/HCPCS: 99395

== ENCOUNTER → 2023-06-01 13:19 | Outpatient (BNVA) | payer BC, SELFPAY | PROVIDERS: PCP Physician Assistant; Visit Provider Obstetrics & Gynecology ==

== ENCOUNTER 2023-11-19 09:08 | Outpatient (REF) | payer BC, SELFPAY ==
[2023-11-19 09:25] LABS: MANUAL DIFF FLAG NO
[2023-11-19 10:16] LABS: Basophils Absolute Auto 0.1 X10*3/uL (0.0-0.2); Basophils Percent Auto 0.9 % (0-2); Eosinophils Absolute Auto 0.2 X10*3/uL (0.0-0.4); Eosinophils Percent Auto 3.8 % (0-4); Hematocrit 45.2 % (37.0-47.0); Hemoglobin 15.6 g/dl (12.0-16.0); Imm Gran Abs Auto 0.01 X10*3/uL (0.00-0.03); Imm Gran Pct Auto 0.2 % (0.0-0.4); Lymphocytes Absolute Auto 1.9 X10*3/uL (1.2-4.9); Lymphocytes Percent Auto 33.9 % (20-40); Mean Corpuscular HGB Conc 34.5 g/dl (31.0-35.0); Mean Corpuscular Volume 92.6 fL (80.0-98.0); Monocytes Absolute Auto 0.5 X10*3/uL (0.1-1.2); Monocytes Percent Auto 8.8 % (2-11); Neutrophils Absolute Auto 2.9 x10*3/uL (2.0-8.3); Neutrophils Percent Auto 52.4 % (45-73); Platelet Count 181 X10*3/uL (160-400); Red Blood Count 4.88 X10*6/uL (4.20-5.50); White Blood Count 5.6 X10*3/uL (4.8-10.8)
[2023-11-19 10:23] LABS: Estimated Average Glucose 80 mg/dL; Hemoglobin A1c % 4.4 % (<6.0)
[2023-11-19 10:57] LABS: Alanine Aminotransferase 13 U/L (0-31); Albumin Level 4.2 g/dL (3.5-5.0); Alkaline Phosphatase 55 U/L (39-117); Anion Gap 13 (12-20); Aspartate Amino Transferase 15 U/L (5-31); Bilirubin Total 0.8 mg/dL (0.0-1.0); Blood Urea Nitrogen 13 mg/dL (9-16); C Reactive Protein 0.27 mg/dL (< or = 0.50); Calcium 9.5 mg/dL (8.4-10.2); Carbon Dioxide 28 mmol/L (22-29); Chloride 105 mmol/L (96-108); Cholesterol 187 mg/dL (<200); Estimated Glomerular Filt Rate > 60; Glucose Random 72 mg/dL (60-115); HDL Cholesterol 61 mg/dL (>40); Iron 105 mcg/dL (30-160); LDL Cholesterol Calculated 113 mg/dL (<100); Percent Iron Saturation 29 % (15-50); Potassium 4.8 mmol/L (3.3-5.1); Sodium 141 mmol/L (135-145); Total Iron Binding Capacity 358 mcg/dL (228-428); Total Protein 7.1 g/dL (6.5-8.0); Triglycerides 69 mg/dL (<150); Unsaturated Iron Binding 253 ug/dL
[2023-11-19 11:17] LABS: Ferritin 52 ng/mL (10-122); Insulin < 2 uU/mL (2-29); TSH reflex Free T4 1.19 uIU/mL (0.32-4.0); Vitamin D 25-OH Total 56.1 ng/mL (>30)
[2023-11-19 11:27] LABS: Folate 12.6 ng/mL (> or = 4.0); Vitamin B12 695 pg/mL (200-900)
[2023-11-22 17:24] LABS: Zinc 63 mcg/dL (60-130)
[2023-11-23 06:09] LABS: Vitamin A 47 mcg/dL (38-98)
[2023-11-25 16:09] LABS: Vitamin B1 13 nmol/L (8-30)
== END 2023-11-19 09:09 | disposition home or self-care (01) ==
LOC: HO.LAB 09:08
PROVIDERS: PCP Physician Assistant; Visit Provider Physician Assistant Surgical
DX: Z98.84 Bariatric surgery status (principal)
CPT/HCPCS: 36415; 80053; 80061; 82306; 82607; 82728; 82746; 83036; 83525; 83540; 84425; 84443; 84590; 84630; 85025; 86140

== ENCOUNTER 2023-12-14 14:27 | Outpatient (AMB) | payer BC, SELFPAY ==
--- NOTE | 2023-12-14 14:03 | A.OFFVIS_ITS ---
Intake VS Expanded 12/14/23 14:05 Height 5 ft 1 in Weight 147 lb BMI 27.8 Intake Visit Reasons: VIDEO PO LSG 10/20/21 (Elin) Liaison Officer Required: No Allergies Sulfa (Sulfonamide Antibiotics) [SULFA(SULFONAMIDE ANTIBIOTICS)] Allergy (Unknown, Verified 06/01/23 13:25) SWELLING Medication List - Last Reconciled 12/14/23 by SHIRA Rincon [celebrate rocael+D PO DAILY] escitalopram oxalate 10 mg PO DAILY norgestimate-ethinyl estradiol 0.25-35 mg-mcg 1 tab PO DAILY HPI HPI Comments History of Present Illness Details This?a?36?yo female who is s/p LSG without hiatal hernia repair on?10/20/[address] Armstrong. Presents for 2 years and 2 months post op visit. Weight today is 147 pounds, with a BMI of 27.8, stable over the last 8 months. Taking flintstones complete instead of bariatric MVI due to cost. States her goal is to lose some more weight Present meal plan includes: isopure-25 g per scoop 1 scoop in 8 oz coffee Equate protein bar-17 g pro protein and veg (low carb) not measuring Drinking 40-60 oz water daily ? Exercise routine includes: walking during lunch 1/2 hour daily, treadmill, weights and videos. 300 calories or more on a daily basis. 2-3 days per week she can hit 450 calories. [facility] Medical History (Updated 06/01/23 @ 13:31 by Lalo Alva MD) Dysplasia of cervix, low grade (EAMON 1) Diaphragmatic hernia Back pain anxiety PCOS (polycystic ovarian syndrome) Surgical History S/P laparoscopic sleeve gastrectomy Hx of cholecystectomy H/O LEEP Hx of wisdom tooth extraction Hx of tonsillectomy Family History Mother No problems noted. Father No problems noted. Brother No problems noted. Social History Household Members: Spouse Household Members Other:: son Housing: House Are you a primary resident care manager rn to a significant other at home: No Do you presently have visiting nurse or other home services: No Alcohol intake: current Alcohol intake frequency: holidays/special occasions only Patient Tobacco Use Status: Never used Tobacco service: No Current occupational status: employed Current occupation: [employer] Sexual orientation: Straight/Heterosexual Gender identity: Female Female Reproductive History Menstrual Age of Menarche: 14 Assessment & Plan Assessment & Plan (1) Overweight: Code(s): E66.3 - Overweight Plan: Change meal plan to: Isopure half scoop Equate bar Meal 8 forks of protein and 8 forks of vegetables Incorporate yoga 2 times per week. Continue goal of 300 calories burned per day. Labs from November 2023 are acceptable. Encouraged to text weight weekly. Return to clinic 6 weeks. Telehealth Telehealth Location of provider rendering services: practice address Location of patient: address on file Patient Identification confirmed using: Name, : Yes Telehealth method: voice only Patient verbally consented to treatment: Yes Patient verbally consented to billing insurance company: Yes Patient informed of any privacy concerns related to visit: Yes Minutes spent on Phone/Video with Pt.: 25 Coding Level of Care Code Tele Est Pt Level 4 (43366) Diagnoses Overweight E66.3 Time Spent (min) 35
[2023-12-14 14:05] VITALS: BMI 27.8
== END 2023-12-14 14:28 | disposition home or self-care (01) ==
LOC: HO.HBS 14:27
PROVIDERS: PCP Physician Assistant; Visit Provider Physician Assistant Surgical
DX: E66.3 Overweight (principal); Z68.27 Body mass index [BMI] 27.0-27.9, adult; Z90.3 Acquired absence of stomach [part of]; Z98.84 Bariatric surgery status
CPT/HCPCS: 99443

== ENCOUNTER → 2023-12-14 14:27 | Outpatient (BNVA) | payer BC, SELFPAY | PROVIDERS: PCP Physician Assistant; Visit Provider Physician Assistant Surgical ==

== ENCOUNTER 2024-01-25 14:23 | Outpatient (AMB) | payer BC, SELFPAY ==
--- NOTE | 2024-01-25 13:46 | MHC.OFFVISWM ---
Intake VS Expanded 01/25/24 13:48 Height 5 ft 1 in Weight 145 lb BMI 27.4 Body Fat % 32.7 Body Fat Mass 47.4 Fat Free Mass 97.6 Visceral Fat Rating 10 Body Water % 46.2 Body Water Mass 66.9 Muscle Mass/Score 91.8 Basal Metabolic Rate/Score 1,325 Intake Visit Reasons: VIDEO PO LSG 10/20/21 Intervention Manager Required: No Allergies Sulfa (Sulfonamide Antibiotics) [SULFA(SULFONAMIDE ANTIBIOTICS)] Allergy (Unknown, Verified 06/01/23 13:25) SWELLING Medication List - Last Reconciled 01/25/24 by SHIRA Rincon escitalopram oxalate 10 mg PO DAILY norgestimate-ethinyl estradiol 0.25-35 mg-mcg 1 tab PO DAILY HPI HPI Comments History of Present Illness Details This?a?36?yo female who is s/p LSG without hiatal hernia repair on?10/20/[address] Armstrong. Presents for 2 years and 3 months post op visit. Initial weight on 07/10/21 was 253.4 pounds and a BMI of 47.8. Weight today is 145 pounds, with a BMI of 27.4, stable over the last 8 months. Taking flintstones complete instead of bariatric MVI due to cost. States her goal is to lose some more weight, she states she is following the meal plan. She feels great and does not want to change anything at this time. She is exercising more and intends to increase more on the weekends as the weather gets warmer. Present meal plan includes: isopure-25 g per scoop 1/2 scoop in 8 oz coffee Equate protein bar-17 g pro protein and veg 8 forks of each Drinking 40-50 oz water daily ? Exercise routine includes: walking during lunch 1/2 hour daily, treadmill, weights (5-10 pound) and videos. 300-350 calories on a daily basis. 2 days per week she can hit 400 calories. [facility] Medical History (Updated 06/01/23 @ 13:31 by Lalo Alva MD) Dysplasia of cervix, low grade (EAMON 1) Diaphragmatic hernia Back pain anxiety PCOS (polycystic ovarian syndrome) Surgical History S/P laparoscopic sleeve gastrectomy Hx of cholecystectomy H/O LEEP Hx of wisdom tooth extraction Hx of tonsillectomy Family History Mother No problems noted. Father No problems noted. Brother No problems noted. Social History Household Members: Spouse Household Members Other:: son Housing: House Are you a primary acute care assistant to a significant other at home: No Do you presently have visiting nurse or other home services: No Alcohol intake: current Alcohol intake frequency: holidays/special occasions only Patient Tobacco Use Status: Never used Tobacco service: No Current occupational status: employed Current occupation: [employer] Sexual orientation: Straight/Heterosexual Gender identity: Female Female Reproductive History Menstrual Age of Menarche: 14 Assessment & Plan Assessment & Plan (1) Overweight: Code(s): E66.3 - Overweight Plan: Patient is making slow but steady progress. She is very happy with her current meal plan and exercise plan. She will continue as such. She will continue to text weights weekly. Follow-up by phone in 6 weeks, sooner with any questions or concerns. Telehealth Telehealth Location of provider rendering services: practice address Location of patient: address on file Patient Identification confirmed using: Name, : Yes Telehealth method: voice only Patient verbally consented to treatment: Yes Patient verbally consented to billing insurance company: Yes Patient informed of any privacy concerns related to visit: Yes Minutes spent on Phone/Video with Pt.: 18 Coding Level of Care Code Tele Est Pt Level 3 (37295) Diagnoses Overweight E66.3 Time Spent (min) 20
[2024-01-25 13:48] VITALS: BMI 27.4
== END 2024-01-25 14:27 | disposition home or self-care (01) ==
LOC: HO.HBS 14:23
PROVIDERS: PCP Physician Assistant; Visit Provider Physician Assistant Surgical
DX: E66.3 Overweight (principal); Z68.27 Body mass index [BMI] 27.0-27.9, adult; Z90.3 Acquired absence of stomach [part of]; Z98.84 Bariatric surgery status
CPT/HCPCS: 99442

== ENCOUNTER → 2024-01-25 14:23 | Outpatient (BNVA) | payer BC, SELFPAY | PROVIDERS: PCP Physician Assistant; Visit Provider Physician Assistant Surgical ==

== ENCOUNTER 2024-04-18 14:15 | Outpatient (AMB) | payer BC, SELFPAY ==
[2024-04-18 08:05] VITALS: BMI 27.1
--- NOTE | 2024-04-18 08:05 | MHC.OFFVISWM ---
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 Presents for 2 years and 6 months post op visit. Initial weight on 07/10/21 was 253.4 pounds and a BMI of 47.8. Weight today is 143.2 pounds, with a BMI of 27.1, stable over the last 8 months. Taking flintstones complete instead of bariatric MVI due to cost. States her goal is to lose some more weight, she states she is following the meal plan. She feels great and does not want to change anything at this time. 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 She is learning how manage this well. She is very happy with the meal plan and is very mindful of her choices when she is in an environment outside of her regular home schedule Present meal plan includes: isopure-25 g per scoop 1/2 scoop in 8 oz coffee Equate protein bar-17 g pro protein and veg 8 forks of each Drinking 40-50 oz water daily ? Exercise routine includes: walking during lunch 1/2 hour daily, treadmill, weights (5-10 pound) and videos. 300-350 calories on a daily basis. 2 days per week she can hit 400 calories. pilates and yoga [facility] Medical History (Updated 06/01/23 @ 13:31 by Lalo Alva MD) Dysplasia of cervix, low grade (EAMON 1) Diaphragmatic hernia Back pain anxiety PCOS (polycystic ovarian syndrome) Surgical History S/P laparoscopic sleeve gastrectomy Hx of cholecystectomy H/O LEEP Hx of wisdom tooth extraction Hx of tonsillectomy Family History Mother No problems noted. Father No problems noted. Brother No problems noted. Social History Household Members: Spouse Household Members Other:: son Housing: House Are you a primary healthcare receptionist to a significant other at home: No Do you presently have visiting nurse or other home services: No Alcohol intake: current Alcohol intake frequency: holidays/special occasions only Patient Tobacco Use Status: Never used Tobacco service: No Current occupational status: employed Current occupation: [employer] Sexual orientation: Straight/Heterosexual Gender identity: Female Female Reproductive History Menstrual Age of Menarche: 14 Telehealth Telehealth Telehealth Platform: Telephone Location of provider rendering services: practice address Location of patient: address on file Patient Identification confirmed using: Name, : Yes Telehealth method: voice only Patient verbally consented to treatment: Yes Patient verbally consented to billing insurance company: Yes Patient informed of any privacy concerns related to visit: Yes Minutes spent on Phone/Video with Pt.: 12 Assessment & Plan Assessment & Plan (1) S/P laparoscopic sleeve gastrectomy: Code(s): Z98.84 - Bariatric surgery status Category: Medical Plan: Overall, patient has done very well. She is acutely aware of her choices and has become much more mindful of what she is doing and what she is eating. She is exercising regularly. Her weight has been stable. She does not wish to change her meal plan at this time and is satisfied with her weight. We have encouraged her to continue to monitor her weight weekly and may text me with those results. She may text me at any point with any questions or concerns. Continue current meal plan. Return for an appointment in 3 months and then again in October for her 3 year follow-up.
== END 2024-04-18 14:28 | disposition home or self-care (01) ==
LOC: HO.HBS 14:15
PROVIDERS: PCP Physician Assistant; Visit Provider Physician Assistant Surgical
DX: E66.3 Overweight (principal); Z68.27 Body mass index [BMI] 27.0-27.9, adult; Z90.3 Acquired absence of stomach [part of]; Z98.84 Bariatric surgery status
CPT/HCPCS: 99442

== ENCOUNTER → 2024-04-18 14:15 | Outpatient (BNVA) | payer BC, SELFPAY | PROVIDERS: PCP Physician Assistant; Visit Provider Physician Assistant Surgical | DX: Z98.84 Bariatric surgery status (principal) ==

== ENCOUNTER 2025-01-09 14:38 | Outpatient (AMB) | payer OTHER, SELFPAY ==
--- NOTE | 2025-01-09 14:39 | A.OFFVIS_ITS ---
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 No complaints. Last Pap/HPV was negative in 12/29 [facility] Medical History Dysplasia of cervix, low grade (EAMON 1) Diaphragmatic hernia Back pain anxiety PCOS (polycystic ovarian syndrome) Surgical History S/P laparoscopic sleeve gastrectomy Hx of cholecystectomy H/O LEEP Hx of wisdom tooth extraction Hx of tonsillectomy Family History Mother No problems noted. Father No problems noted. Brother No problems noted. Social History Household Members: Spouse Household Members Other:: son Housing: House Are you a primary career and transition teacher to a significant other at home: No Do you presently have visiting nurse or other home services: No Alcohol intake: current Alcohol intake frequency: holidays/special occasions only Patient Tobacco Use Status: Never used Tobacco service: No Current occupational status: employed Current occupation: [employer] Sexual orientation: Straight/Heterosexual Gender identity: Female Female Reproductive History Menstrual Age of Menarche: 14 Date of last menstrual period: 01/09/25 Date of last pap smear: 12/24/21 Review of Systems Const All systems reviewed & are unremarkable except as noted in HPI and below Card Reports as per HPI Resp Reports as per HPI GI Reports as per HPI and Reports no additional complaints Reports as per HPI Physical Exam Vital Signs: Last Vital Signs BP 110/72 01/09/25 14:40 BMI result Body Mass Index 27.6 Const General: cooperative, healthy appearing and comfortable Chest Chest palpation & inspection: normal inspection of the chest and normal palpation of entire chest wall Breast/axilla inspection: normal inspection of the breasts and normal inspection of the axillae Breast/axilla palpation: normal palpation of the breasts, normal palpation of the axillae and no axillary lymphadenopathy Resp Effort & Inspection: normal respiratory effort Auscultation: clear to auscultation bilaterally Percussion: percussion normal Cardio Palpation: normal PMI Rate: regular rate Rhythm: regular rhythm Heart sounds: no murmurs and no rubs Peripheral pulses: Peripheral pulses 2+ throughout GI Inspection: Yes normal to inspection Palpation (GI): Soft to palpation, nontender, no guarding, not rigid and No hepatosplenomegaly present Percussion: Yes normal to percussion Auscultation: normal bowel sounds Rectal Exam - Female: deferred General: Yes bladder normal to palpation External Female Exam: No lesion Speculum Exam - Vagina: normal appearance of the vagina, normal palpation, normal vaginal discharge and not erythematous Speculum Exam - Cervix: normal appearance of the cervix and normal palpation Bimanual exam- vagina & uterus: normal bimanual exam, normal palpation, uterine size normal, bladder normal to palpation, consistency normal and normal palpation Bimanual Exam- Adnexa, other: normal adnexae, no masses and no tenderness Assessment & Plan Assessment & Plan (1) Well woman exam: Code(s): Z01.419 - Encounter for gynecological examination (general) (routine) without abnormal findings Category: Medical Plan: Cotesting done. Counseled the patient about the recommended dietary allowance of 1000 mg of Calcium & 600 IU of vitamin D. The patient was instructed to perform monthly self-breast exams and to schedule an annual exam in a year; All questions answered and the patient verbalized understanding. Instructed the patient to schedule annual exam in a year Coding Level of Care Code Est Pt Prev Care 18-39y([id number]) Diagnoses Well woman exam Z01.419
[2025-01-09 14:40] VITALS: BP 110/72; BMI 27.6
--- OUTSIDE RECORDS SUMMARY | 2025-01-09 17:37 | XMS_ITS | Clinical Summary ---
Author Organization [facility] Address [address] [place] [phone] Phone Care Team Providers Care Visual Associate Name Role Phone Unavailable Primary Care Provider Unavailabl e Immunizations Immunization Administration Dates Next Due DTP 11/13/1992, 9,08/12/1988,05/20,02/18/1988 Hep B, ped/adol 02/17/2000,09/22/1999,08/12/1999 Hib (PRP-T) 11/09/1989 MMR 02/13/1999,02/28/1989 Meningococcal Conj (Menactra) MCV4P 10/28/2005 OPV 11/13/1992, 9,05/20/1988,02/17 Td (adult) (Tenivac), 5 Lf t etanus toxoid, PF, adsorbed 02/13/1999 Family History Relation Name Status Comments Brother Alive Brother: Alive and well Father Alive Father: Alive a nd well Mother Alive Mother: High Ch olesterol Social History Tobacco Use Types Packs/Day Years Used Date Smoking Tobacco: Never Assessed Comments Unknown Sex and Gender Information Value Date Recorded Sex Assigned at Not on file Legal Sex Female 4:21 PM EDT Gender Identity Not on file Sexual Orientation Not on file Plan of Treatment Health Maintenance Due Date Last Done Comments DTaP,Tdap,and Td Vaccines (6 - Tdap) 02/14/1999 02/13/1999, 11/13/1992, 06/13/1989, Additional history exists Varicella Vaccines (1 of 2 - 13+ 2-dose series) 2000 Influenza Vaccines (#1) 2024 COVID-19 Vaccine (2023- season) 2024 HIB Vaccines Completed 11/09/1989 IPV Vaccines Completed 11/13/1992, 05/1989, 05/20/1988, Additional history exists MMR Vaccines Completed 02/13/1999, 02/28/1989 Hepatitis B Vaccines Completed 02/17/2000, 09/22/1999, 08/12/1999 Meningococcal Vaccine Completed 10/28/2005 HPV Vaccines Aged Out No longer eligi ble based on patient's age to complete this topic Hepatitis A Vaccines Aged Out No long er eligible based on patient's age to complete this topic Men B Vaccine Aged Out No longer elig ible based on patient's age to complete this topic Pneumococcal Vaccine Aged Out No long er eligible based on patient's age to complete this topic
--- OUTSIDE RECORDS SUMMARY | 2025-01-09 17:37 | XMS_ITS | Encounter Summary ---
Author Organization [facility] Address [address] [place] [phone] Phone Care Team Providers Care Lurer Name Role Phone Yasmine Wen MD Primary Care Provider Encounter Details Date Type Department Care Team (Late st Contact Info) Description 06/23/2017 Conversion Encounter [facility] [place] [address] [place] [address] Social History Tobacco Use Types Packs/Day Years Used Date Smoking Tobacco: Never Assessed Comments Unknown Sex and Gender Information Value Date Recorded Sex Assigned at Not on file Legal Sex Female 4:21 PM EDT Gender Identity Not on file Sexual Orientation Not on file documented as of this encounter Plan of Treatment Not on file documented as of this encounter Visit Diagnoses Not on filedocumented in this encounter Care Teams Lurer Relationship Specialty Start Date End Date Yasmine Wen MD [address] [place] [address] PCP - General 06/17/17 02/17/23 documented as of this encounter
== END 2025-01-09 15:08 | disposition home or self-care (01) ==
LOC: HO.HWS 14:38
PROVIDERS: PCP Physician Assistant; Visit Provider Obstetrics & Gynecology
DX: Z01.419 Encounter for gynecological examination (general) (routine) without abnormal findings (principal)
CPT/HCPCS: 99395; 99459

== ENCOUNTER 2025-01-09 14:38 | Outpatient (REF) | payer OTHER, SELFPAY ==
--- OUTSIDE RECORDS SUMMARY | 2025-01-09 18:30 | XMS_ITS | Clinical Summary ---
Author Organization [facility] Address [address] [place] [phone] Phone Care Team Providers Care Guest Relations Representative Name Role Phone Unavailable Primary Care Provider [...]
--- OUTSIDE RECORDS SUMMARY | 2025-01-09 18:30 | XMS_ITS | Encounter Summary ---
Author Organization [facility] Address [address] [place] [phone] Phone Care Team Providers Care Java Core Developer Name Role Phone Yasmine Wen MD Primary Care Provider [phone] Encounter Details Date Type Department Care Team (Late st Contact Info) Description 06/23/2017 Conversion Encounter [facility] [place] [address] [place] [address] Social History Tobacco Use Types Packs/Day Years [...] on filedocumented in this encounter Care Teams Java Core Developer Relationship Specialty Start Date End Date Yasmine Wen MD [address] [place] [address] PCP - General 06/17/17 02/17/23 documented as of this encounter
[2025-01-15 15:00] LABS: HPV Genotype 16 Negative (Negative); HPV Genotype 18 Negative (Negative); HPV High Risk Negative (Negative)
== END 2025-01-09 14:39 | disposition home or self-care (01) ==
LOC: HO.LNP 14:38
PROVIDERS: PCP Physician Assistant; Visit Provider Obstetrics & Gynecology
DX: Z01.419 Encounter for gynecological examination (general) (routine) without abnormal findings (principal); D06.9 Carcinoma in situ of cervix, unspecified
CPT/HCPCS: 87626; 88175